=== PATIENT | male | born 1950 | race African-American/Black ===

== ENCOUNTER 2017-10-28 10:28 | Inpatient (IN) | payer BC, OTHER ==
[2017-10-28 13:05] VITALS: BMI 44.0
--- NOTE | 2017-10-28 13:26 | HP ---
CIWA Score - CIWA Score Nausea/Vomitin-Mild Nausea/No Vomiting Muscle Tremors: 3 Anxiety: 4-Mod. Anxious/Guarded Agitation: 0-Normal Activity Paroxysmal Sweats: 1-Minimal Palms Moist Orientation: 1-Uncertain about Date Tacttile Disturbances: 0-None Auditory Disturbances: 1-Very Mild Visual Disturbances: 0-None Headache: 0-None Present CIWA-Ar Total Score: 11 Admission ROS BHS - HPI Chief Complaint: I know I need help, I wake up each day and first off get a beer - I can't stop, the stroke made me want to get help. Allergies/Adverse Reactions: Allergies Allergy/AdvReac Type Severity Reaction Status Date / Time No Known Allergies Allergy Verified 10/28/17 13:44 History of Present Illness: 67 yo gentleman here for detox from alcohol. No seizures but does have black outs, had a stroke 10/19/17. Previously in detox, rehab but relapsed for several years (last here in outpatient rehab 2011). Patient is homeless. Although he has mild facial drop and expressive aphasia from recent stroke, patient states he has no trouble swallowing or eating. Exam Limitations: Clinical Condition - Ebola screening Have you traveled outside of the country in the last 21 days: No (N) Have you had contact with anyone from an Ebola affected area: No Have you been sick,other than usual withdrawal symptoms: No Do you have a fever: No - Review of Systems Constitutional: Night Sweats, Changes in sleep EENT: reports: Blurred Vision, Other (left sided facial droop) Respiratory: reports: No Symptoms reported Cardiac: reports: No Symptoms Reported GI: reports: Nausea, Indigestion : reports: Frequency, Urgency Musculoskeletal: reports: No Symptoms Reported Integumentary: reports: Dryness Neuro: reports: Pre-Existing Deficit (expressive aphasia, left sided facial droop) Endocrine: reports: No Symptoms Reported Hematology: reports: No Symptoms Reported Psychiatric: reports: Judgement Intact, Mood/Affect Appropiate, Anxious Other Systems: Reviewed and Negative Patient History - Patient Medical History Hx Anemia: No Hx Asthma: No Hx Chronic Obstructive Pulmonary Disease (COPD): No Hx Cancer: No Hx Cardiac Disorders: No Hx Congestive Heart Failure: No Hx Hypertension: No Hx Hypercholesterolemia: No Hx Pacemaker: No HX Cerebrovascular Accident: Yes (10/19/2017 - ischemic basal ganglion) Hx Seizures: No Hx Dementia: No Hx Diabetes: Yes (oral meds) Hx Gastrointestinal Disorders: No Hx Liver Disease: No Hx Genitourinary Disorders: No Hx Sexually Transmitted Disorders: No Hx Renal Disease (ESRD): No Hx Thyroid Disease: No Hx Human Immunodeficiency Virus (HIV): No Hx Hepatitis C: No Hx Depression: Yes (sometimes - never sees regular psych, no meds) Hx Suicide Attempt: No Hx Bipolar Disorder: No Hx Schizophrenia: No - Patient Surgical History Hx Orthopedic Surgery: Yes (left knee arthroscopy age 47) - PPD History Previous Implant?: Yes Documented Results: Negative w/o proof PPD to be Administered?: Yes - Reproductive History Patient is a Female of Child Bearing Age (11 -55 yrs old): No (male) - Smoking Cessation Smoking history: Never smoked Have you smoked in the past 12 months: No Initiated information on smoking cessation: No - Substance & Tx. History Hx Alcohol Use: Yes Hx Substance Use: Yes Substance Use Type: Alcohol, Cocaine Hx Substance Use Treatment: Yes (detox, in and outpatient rehab) - Substances Abused alcohol Route: Oral Frequency: Daily Amount used: 1/2 pint liquor; 2 cans 24 oz beer Age of first use: 9 Date of Last Use: 10/27/17 crack Route: Smoking Frequency: 1-3 times last 30 days Amount used: $100 Age of first use: 31 Date of Last Use: 10/25/17 Family Disease History - Family Disease History Family Disease History: Diabetes: Sister (one - - sepsis), Heart Disease: Mother (, htn), Other: Father (, old age), Mother, Brother (two - hx drugs, etoh), Sister, Son (two - healthy) Admission Physical Exam S - Vital Signs Vital Signs: Vital Signs - 24 hr 10/28/17 12:59 Temperature 97 F L Pulse Rate 79 Respiratory 20 Rate Blood Pressure 134/77 - Physical General Appearance: Yes: Nourished, Appropriately Dressed, Moderate Distress, Obese, Anxious HEENTM: Yes: Hearing grossly Normal, Normocephalic, Pharynx Normal, Other (left sided facial droop, mild expressive aphasia) Respiratory: Yes: Normal Breath Sounds, No Respiratory Distress Neck: Yes: No masses,lesions,Nodules Breast: Yes: Breast Exam Deferred Cardiology: Yes: Regular Rhythm, Regular Rate Abdominal: Yes: Flat, Protuberent Genitourinary: Yes: Frequency Back: Yes: Normal Inspection Musculoskeletal: Yes: full range of Motion, Gait Steady Extremities: Yes: Normal Inspection Neurological: Yes: Fully Oriented, Alert, Normal Mood/Affect, Normal Response, Facial Droop Integumentary: Yes: Normal Color, Warm Lymphatic: Yes: Within Normal Limits - Addiitonal Findings: bgm 175 - Diagnostic (1) Alcohol dependence with uncomplicated withdrawal Current Visit: Yes Status: Chronic (2) Cocaine abuse Current Visit: Yes Status: Chronic (3) Hypercholesteremia Current Visit: Yes Status: Chronic (4) Diabetes mellitus treated with oral medication Current Visit: Yes Status: Chronic (5) Obesity, Class III, BMI 40-49.9 (morbid obesity) Current Visit: Yes Status: Chronic (6) HTN (hypertension) Current Visit: Yes Status: Chronic Qualifiers: Hypertension type: essential hypertension Qualified Code(s): I10 - Essential (primary) hypertension (7) History of CVA with residual deficit Current Visit: Yes Status: Chronic (8) BPH (benign prostatic hyperplasia) Current Visit: Yes Status: Chronic Qualifiers: Lower urinary tract symptom presence: symptoms present Lower urinary tract symptom detail: urinary frequency Qualified Code(s): N40.1 - Benign prostatic hyperplasia with lower urinary tract symptoms; R35.0 - Frequency of micturition ; R35.0 - Frequency of micturition (9) Expressive aphasia Current Visit: Yes Status: Acute (10) Facial droop Current Visit: Yes Status: Chronic Comment: left side, due to CVA Cleared for Admission [facility] - Detox or Rehab [facility] Level of Care: Medically Managed Detox Regimen/Protocol: Librium [facility] Breath Alcohol Content Breath Alcohol Content: 0 Urine Drug Screen - Results Drug Screen Negative: No Urine Drug Screen Results: GISSELL-Cocaine, BZO-Benzodiazepines
[2017-10-28] MEDS ORDERED: MENTHOL/PHENOL 1 EACH UD MM PRN (13:53)
[2017-10-28] MEDS ORDERED: hydrOXYzine PAMOATE 25 MG CAPSULE (FP) PO PRN (13:53)
[2017-10-28] MEDS ORDERED: ACETAMINOPHEN 325 MG TABLET (FP) PO PRN (13:53)
[2017-10-28] MEDS ORDERED: LOPERAMIDE HCL 2 MG CAPSULE PO PRN (13:53)
[2017-10-28] MEDS ORDERED: guaiFENesin/D-METHORPHAN HB 10 ML UNIT-DOSE CUPS PO PRN (13:53)
[2017-10-28] MEDS ORDERED: MAGNESIUM HYDROX 2400MG/30ML ORAL SUSPENSION 30 ML CUP PO PRN (13:53)
[2017-10-28] MEDS ORDERED: chlordiazePOXIDE HCL 25 MG CAPSULE PO PRN (13:53)
[2017-10-28] MEDS ORDERED: P-EPHED 60MG/TRIPROLIDI 2.5MG TABLET PO PRN (13:53)
[2017-10-28] MEDS ORDERED: MAGNESIUM CITRATE 300 ML BOTTLE PO PRN (13:53)
[2017-10-28] MEDS ORDERED: MAG HYDROX/AL HYDROX/SIMETH 30 ML UNIT-DOSE CUP PO PRN (13:53)
[2017-10-28] MEDS ORDERED: chlordiazePOXIDE HCL 25 MG CAPSULE PO ONE (14:45)
[2017-10-28] MEDS: chlordiazePOXIDE HCL 25 MG CAPSULE PO SCH ×2 (17:48→23:36)
[2017-10-28] MEDS ORDERED: INSULIN (NOVOLOG) ASPART 100 UNITS/ML 10ML VIAL ONE (17:55)
[2017-10-28] MEDS: metFORMIN HCL 500 MG TABLET (FP) PO SCH (17:56)
[2017-10-28] MEDS: INSULIN SLIDING SCALE (NOVOLOG) 1 VIAL SQ SCH (18:01)
[2017-10-28] MEDS: LOSARTAN POTASSIUM 50 MG TABLET (FP) PO SCH (18:20)
[2017-10-28] MEDS: ASPIRIN 81 MG CHEWABLE TABLETS PO SCH (18:20)
[2017-10-28] MEDS: HYDROCHLOROTHIAZIDE 25 MG TABLET (FP) PO SCH (18:21)
[2017-10-28] MEDS: ATORVASTATIN CA 10 MG TABLET (FP) PO SCH (23:35)
[2017-10-28] MEDS: THIAMINE HCL 100 MG TABLET (FP) PO SCH (23:35)
[2017-10-29 00:55] LABS: URINE APPEARANCE CLEAR; URINE BILIRUBIN NEGATIVE (NEGATIVE); URINE BLOOD NEGATIVE (NEGATIVE); URINE COLOR YELLOW; URINE GLUCOSE (UA) 3+ (NEGATIVE); URINE KETONE NEGATIVE (NEGATIVE); URINE LEUK ESTERASE NEGATIVE (NEGATIVE); URINE NITRITE NEGATIVE (NEGATIVE); URINE PROTEIN NEGATIVE (NEGATIVE)
[2017-10-29] MEDS: chlordiazePOXIDE HCL 25 MG CAPSULE PO SCH ×4 (07:19→22:02)
[2017-10-29] MEDS ORDERED: INSULIN (NOVOLOG) ASPART 100 UNITS/ML 10ML VIAL ONE ×2 (07:27→17:28)
[2017-10-29] MEDS: INSULIN SLIDING SCALE (NOVOLOG) 1 VIAL SQ SCH ×2 (07:33→17:39)
[2017-10-29 10:12] LABS: HEMATOCRIT 39.2 % (35.4-49); HEMOGLOBIN 13.9 GM/dL (11.7-16.9); MCH 31.5 pg (25.7-33.7); MCHC 35.3 g/dl (32.0-35.9); MEAN CELL VOLUME 89.1 fl (80-96); MEAN PLT VOLUME 8.9 fl (7.5-11.1); PLATELET COUNT 131 K/MM3 (134-434); RBC 4.41 M/mm3 (4.00-5.60); RDW 12.5 % (11.9-15.9); WHITE BLOOD COUNT 3.5 K/mm3 (4.0-10.0)
[2017-10-29 10:17] LABS: CHLORIDE 101 mmol/L (98-107); POTASSIUM 3.3 mmol/L (3.5-5.1); SODIUM 139 mmol/L (136-145)
--- NOTE | 2017-10-29 10:17 | CONSULT ---
[facility] Psychiatric Consult - Data Date of interview: 10/29/17 Admission source: Self-referred Identifying data: Mr Zimmerman is a 67 years old single Black male, father of a 32 years old son, unemployed on SSI, homeless seeking detox treatment for alcohol and cocaine Substance Abuse History: Reports history of alcohol and cocaine use. Refer to addiction counselor's note for further information Medical History: Significant for diabetes mellitus, hypertension, BPH and history of recent CVA(residual facial dropping & expressive aphasia) and arthroscopic surgery left knee. Psychiatric History: Denies history of psychiatric treatment Physical/Sexual Abuse/Trauma History: Denies history of emotional, physical or sexual abuse as well as DV relationship. No service Additional Comment: Reports history of 2 previous midemeanor arrests on charges of possession of narcotic Mental Status Exam - Mental Status Exam Alert and Oriented to: Time, Place, Person Cognitive Function: Fair Patient Appearance: Disheveled Mood: Hopeful, Euthymic Patient Behavior: Cooperative Speech Pattern: Clear Voice Loudness: Normal Thought Process: Intact, Goal Oriented Thought Disorder: Not Present Hallucinations: Denies Suicidal Ideation: Denies Homicidal Ideation: Denies Insight/Judgement: Poor Sleep: Well Appetite: Good Muscle strength/Tone: Normal Gait/Station: Normal Psychiatric Findings - Problem List ([place] 1, 2,3) (1) Alcohol dependence with uncomplicated withdrawal Current Visit: Yes Status: Acute (2) Cocaine abuse Current Visit: Yes Status: Acute (3) History of CVA with residual deficit Current Visit: Yes Status: Chronic (4) Expressive aphasia Current Visit: Yes Status: Chronic (5) Facial droop Current Visit: Yes Status: Chronic Comment: left side, due to CVA (6) BPH (benign prostatic hyperplasia) Current Visit: Yes Status: Chronic Qualifiers: Lower urinary tract symptom presence: symptoms present Lower urinary tract symptom detail: urinary frequency Qualified Code(s): N40.1 - Benign prostatic hyperplasia with lower urinary tract symptoms; R35.0 - Frequency of micturition ; R35.0 - Frequency of micturition (7) HTN (hypertension) Current Visit: Yes Status: Chronic Qualifiers: Hypertension type: essential hypertension Qualified Code(s): I10 - Essential (primary) hypertension (8) Hypercholesteremia Current Visit: Yes Status: Chronic (9) Obesity, Class III, BMI 40-49.9 (morbid obesity) Current Visit: Yes Status: Chronic - Initial Treatment Plan Initial Treatment Plan: Monitor progress
[2017-10-29] MEDS: ASPIRIN 81 MG CHEWABLE TABLETS PO SCH (10:24)
[2017-10-29] MEDS: PRENATAL VITAMINS W/ FOLIC ACID TABLET (FP) PO SCH (10:24)
[2017-10-29] MEDS: TAMSULOSIN HCL 0.4 MG CAP.ER.24H (FP) PO SCH (10:25)
[2017-10-29] MEDS: HYDROCHLOROTHIAZIDE 25 MG TABLET (FP) PO SCH (10:25)
[2017-10-29] MEDS: metFORMIN HCL 500 MG TABLET (FP) PO SCH ×2 (10:26→17:38)
[2017-10-29 10:27] LABS: ALBUMIN 3.3 g/dl (3.4-5.0); ALK PHOS 52 U/L (45-117); ANION GAP 9 (8-16); BILIRUBIN,TOTAL 1.1 mg/dL (0.2-1.0); BLOOD UREA NITROGEN 18 mg/dL (7-18); CALCIUM 8.3 mg/dL (8.5-10.1); CO2 29 mmol/L (21-32); CREATININE 1.1 mg/dL (0.7-1.3); GLUCOSE,RANDOM 188 mg/dL (74-106); SGOT/AST 39 U/L (15-37); SGPT/ALT 67 U/L (12-78); TOT PROT 6.5 g/dl (6.4-8.2)
[2017-10-29] MEDS: LOSARTAN POTASSIUM 50 MG TABLET (FP) PO SCH (10:28)
--- NOTE | 2017-10-29 12:34 | PN ---
[facility] CIWA - CIWA Score Nausea/Vomitin-Mild Nausea/No Vomiting Muscle Tremors: 4-Moderate,w/Arms Extend Anxiety: 4-Mod. Anxious/Guarded Agitation: 4-Moderately Restless Paroxysmal Sweats: 1-Minimal Palms Moist Orientation: 0-Oriented Tacttile Disturbances: 0-None Auditory Disturbances: 0-None Visual Disturbances: 0-None Headache: 0-None Present CIWA-Ar Total Score: 14 BHS Progress Note (SOAP) Subjective: sweat tremor restlessness irritable sleeplessness Objective: 10/29/17 12:32 Vital Signs Temperature 97.7 F 10/29/17 10:00 Pulse Rate 73 10/29/17 10:00 Respiratory Rate 18 10/29/17 10:00 Blood Pressure 128/64 10/29/17 10:00 O2 Sat by Pulse Oximetry (%) Laboratory Last Values WBC 3.5 K/mm3 (4.0-10.0) L 10/29/17 07:20 RBC 4.41 M/mm3 (4.00-5.60) 10/29/17 07:20 Hgb 13.9 GM/dL (11.7-16.9) 10/29/17 07:20 Hct 39.2 % (35.4-49) 10/29/17 07:20 MCV 89.1 fl (80-96) 10/29/17 07:20 MCH 31.5 pg (25.7-33.7) 10/29/17 07:20 MCHC 35.3 g/dl (32.0-35.9) 10/29/17 07:20 RDW 12.5 % (11.9-15.9) 10/29/17 07:20 Plt Count 131 K/MM3 (134-434) L 10/29/17 07:20 MPV 8.9 fl (7.5-11.1) 10/29/17 07:20 Sodium 139 mmol/L (136-145) 10/29/17 07:20 Potassium 3.3 mmol/L (3.5-5.1) L 10/29/17 07:20 Chloride 101 mmol/L (98-107) 10/29/17 07:20 Carbon Dioxide 29 mmol/L (21-32) 10/29/17 07:20 Anion Gap 9 (8-16) 10/29/17 07:20 BUN 18 mg/dL (7-18) 10/29/17 07:20 Creatinine 1.1 mg/dL (0.7-1.3) 10/29/17 07:20 Creat Clearance w eGFR > 60 (>60) 10/29/17 07:20 POC Glucometer 196 UNITS (80-120) 10/29/17 07:15 Random Glucose 188 mg/dL (74-106) H 10/29/17 07:20 Calcium 8.3 mg/dL (8.5-10.1) L 10/29/17 07:20 Total Bilirubin 1.1 mg/dL (0.2-1.0) H 10/29/17 07:20 AST 39 U/L (15-37) H 10/29/17 07:20 ALT 67 U/L (12-78) 10/29/17 07:20 Alkaline Phosphatase 52 U/L (45-117) 10/29/17 07:20 Total Protein 6.5 g/dl (6.4-8.2) 10/29/17 07:20 Albumin 3.3 g/dl (3.4-5.0) L 10/29/17 07:20 Urine Color Yellow 10/29/17 00:01 Urine Appearance Clear 10/29/17 00:01 Urine pH 6.0 (5.0-8.0) 10/29/17 00:01 Ur Specific [place] 1.040 (1.001-1.035) H 10/29/17 00:01 Urine Protein Negative (NEGATIVE) 10/29/17 00:01 Urine Glucose (UA) 3+ (NEGATIVE) H 10/29/17 00:01 Urine Ketones Negative (NEGATIVE) 10/29/17 00:01 Urine Blood Negative (NEGATIVE) 10/29/17 00:01 Urine Nitrite Negative (NEGATIVE) 10/29/17 00:01 Urine Bilirubin Negative (NEGATIVE) 10/29/17 00:01 Urine Urobilinogen 2.0 mg/dL (0.2-1.0) 10/29/17 00:01 Ur Leukocyte Esterase Negative (NEGATIVE) 10/29/17 00:01 RPR Titer Nonreactive (NONREACTIVE) 10/29/17 07:20 lab noted potassium supplement Assessment: 10/29/17 12:33 withdrawal sx hypokalemia Plan: continue detox potassium 20 meq bid po repeat serum K+ 10/31/17
[2017-10-29] MEDS: POTASSIUM CHLORIDE ORAL LIQUID 20 MEQ/15 ML PO SCH ×2 (13:30→22:02)
--- NOTE | 2017-10-29 20:36 | EKG ---
Test Reason : Blood Pressure : / mmHG Vent. Rate : 069 BPM Atrial Rate : 069 BPM P-R Int : 198 ms QRS Dur : 128 ms QT Int : 414 ms P-R-T Axes : 054 -61 030 degrees QTc Int : 443 ms NORMAL SINUS RHYTHM LEFT AXIS DEVIATION NON-SPECIFIC INTRA-VENTRICULAR CONDUCTION BLOCK INFERIOR INFARCT , AGE UNDETERMINED ANTEROLATERAL INFARCT , AGE UNDETERMINED ABNORMAL ECG NO PREVIOUS ECGS AVAILABLE Confirmed by FARHANA ENGEL, AMBER ([id number]) on 10/29/2017 8:35:53 PM Referred By: Confirmed By:AMBER DELCID MD
[2017-10-29] MEDS: ATORVASTATIN CA 10 MG TABLET (FP) PO SCH (22:02)
[2017-10-29] MEDS: THIAMINE HCL 100 MG TABLET (FP) PO SCH (22:02)
[2017-10-30] MEDS: chlordiazePOXIDE HCL 25 MG CAPSULE PO SCH ×2 (05:12→10:12)
[2017-10-30] MEDS: metFORMIN HCL 500 MG TABLET (FP) PO SCH ×2 (06:14→17:21)
[2017-10-30] MEDS ORDERED: INSULIN (NOVOLOG) ASPART 100 UNITS/ML 10ML VIAL ONE ×2 (06:17→16:55)
[2017-10-30] MEDS: INSULIN SLIDING SCALE (NOVOLOG) 1 VIAL SQ SCH ×2 (07:52→17:21)
[2017-10-30] MEDS: TAMSULOSIN HCL 0.4 MG CAP.ER.24H (FP) PO SCH (10:12)
[2017-10-30] MEDS: POTASSIUM CHLORIDE ORAL LIQUID 20 MEQ/15 ML PO SCH ×2 (10:12→22:19)
[2017-10-30] MEDS: PRENATAL VITAMINS W/ FOLIC ACID TABLET (FP) PO SCH (10:12)
[2017-10-30] MEDS: HYDROCHLOROTHIAZIDE 25 MG TABLET (FP) PO SCH (10:12)
[2017-10-30] MEDS: ASPIRIN 81 MG CHEWABLE TABLETS PO SCH (10:12)
[2017-10-30] MEDS ORDERED: POTASSIUM CHLORIDE TABS 20 MEQ TABLET.ER (FP) PO ONE (10:38)
--- NOTE | 2017-10-30 10:38 | PN ---
S CIWA - CIWA Score Nausea/Vomitin Muscle Tremors: 3 Anxiety: 3 Agitation: 2 Paroxysmal Sweats: 1-Minimal Palms Moist Orientation: 0-Oriented Tacttile Disturbances: 1-Very Mild Itch/Numbness Auditory Disturbances: 1-Very Mild Visual Disturbances: 0-None Headache: 2-Mild CIWA-Ar Total Score: 16 BHS Progress Note (SOAP) Subjective: ALERT,IRRITABLE,ANXIOUS,INTERRUPTED SLEEP,TREMOR Objective: 10/30/17 10:34 Vital Signs Temperature 97.3 F L 10/30/17 10:27 Pulse Rate 78 10/30/17 10:27 Respiratory Rate 18 10/30/17 10:27 Blood Pressure 123/57 10/30/17 10:27 O2 Sat by Pulse Oximetry (%) NO CHEST PAIN,NO SOB,NO DIZZINESS 10/30/17 10:36 Laboratory Last Values WBC 3.5 K/mm3 (4.0-10.0) L 10/29/17 07:20 RBC 4.41 M/mm3 (4.00-5.60) 10/29/17 07:20 Hgb 13.9 GM/dL (11.7-16.9) 10/29/17 07:20 Hct 39.2 % (35.4-49) 10/29/17 07:20 MCV 89.1 fl (80-96) 10/29/17 07:20 MCH 31.5 pg (25.7-33.7) 10/29/17 07:20 MCHC 35.3 g/dl (32.0-35.9) 10/29/17 07:20 RDW 12.5 % (11.9-15.9) 10/29/17 07:20 Plt Count 131 K/MM3 (134-434) L 10/29/17 07:20 MPV 8.9 fl (7.5-11.1) 10/29/17 07:20 Sodium 139 mmol/L (136-145) 10/29/17 07:20 Potassium 3.3 mmol/L (3.5-5.1) L 10/29/17 07:20 Chloride 101 mmol/L (98-107) 10/29/17 07:20 Carbon Dioxide 29 mmol/L (21-32) 10/29/17 07:20 Anion Gap 9 (8-16) 10/29/17 07:20 BUN 18 mg/dL (7-18) 10/29/17 07:20 Creatinine 1.1 mg/dL (0.7-1.3) 10/29/17 07:20 Creat Clearance w eGFR > 60 (>60) 10/29/17 07:20 POC Glucometer 192 UNITS (80-120) 10/30/17 05:12 Random Glucose 188 mg/dL (74-106) H 10/29/17 07:20 Calcium 8.3 mg/dL (8.5-10.1) L 10/29/17 07:20 Total Bilirubin 1.1 mg/dL (0.2-1.0) H 10/29/17 07:20 AST 39 U/L (15-37) H 10/29/17 07:20 ALT 67 U/L (12-78) 10/29/17 07:20 Alkaline Phosphatase 52 U/L (45-117) 10/29/17 07:20 Total Protein 6.5 g/dl (6.4-8.2) 10/29/17 07:20 Albumin 3.3 g/dl (3.4-5.0) L 10/29/17 07:20 Urine Color Yellow 10/29/17 00:01 Urine Appearance Clear 10/29/17 00:01 Urine pH 6.0 (5.0-8.0) 10/29/17 00:01 Ur Specific [place] 1.040 (1.001-1.035) H 10/29/17 00:01 Urine Protein Negative (NEGATIVE) 10/29/17 00:01 Urine Glucose (UA) 3+ (NEGATIVE) H 10/29/17 00:01 Urine Ketones Negative (NEGATIVE) 10/29/17 00:01 Urine Blood Negative (NEGATIVE) 10/29/17 00:01 Urine Nitrite Negative (NEGATIVE) 10/29/17 00:01 Urine Bilirubin Negative (NEGATIVE) 10/29/17 00:01 Urine Urobilinogen 2.0 mg/dL (0.2-1.0) 10/29/17 00:01 Ur Leukocyte Esterase Negative (NEGATIVE) 10/29/17 00:01 RPR Titer Nonreactive (NONREACTIVE) 10/29/17 07:20 HYPOKALEMIA Assessment: 10/30/17 10:37 WITHDRAWAL SYMPTOM Plan: CONTINUE DETOX,K DUR 20 MEQ PO DAILY FOR 3 DAYS K IS 3.3,REPEAT BMP IN AM
--- NOTE | 2017-10-30 10:40 | PN ---
BHS Progress Note Note: PATIENT HAS BEEN ON KCL 20 MEQ PO BID ,WILL REPEAT BMP IN AM
[2017-10-30] MEDS: LOSARTAN POTASSIUM 50 MG TABLET (FP) PO SCH (11:04)
[2017-10-30] MEDS: chlordiazePOXIDE 5 MG CAPSULE PO SCH ×2 (17:21→22:19)
[2017-10-30] MEDS: ATORVASTATIN CA 10 MG TABLET (FP) PO SCH (22:19)
[2017-10-30] MEDS: THIAMINE HCL 100 MG TABLET (FP) PO SCH (22:19)
[2017-10-31] MEDS: chlordiazePOXIDE 5 MG CAPSULE PO SCH ×2 (05:31→10:23)
[2017-10-31] MEDS ORDERED: INSULIN (NOVOLOG) ASPART 100 UNITS/ML 10ML VIAL ONE (07:40)
[2017-10-31] MEDS: metFORMIN HCL 500 MG TABLET (FP) PO SCH ×2 (07:43→18:01)
[2017-10-31] MEDS: INSULIN SLIDING SCALE (NOVOLOG) 1 VIAL SQ SCH ×2 (07:43→18:05)
--- NOTE | 2017-10-31 09:53 | PN ---
S Progress Note (SOAP) Subjective: ALERT,IRRITABLE,ANXIOUS,INTERRUPTED SLEEP, Objective: 10/31/17 09:52 Vital Signs Temperature 97 F L 10/31/17 06:06 Pulse Rate 64 10/31/17 06:06 Respiratory Rate 20 10/31/17 06:06 Blood Pressure 138/69 10/31/17 06:06 O2 Sat by Pulse Oximetry (%) BGM 211 REPEAT BMP PENDING Assessment: WITHDRAWAL SYMPTOM 10/31/17 09:52 Plan: CONTINUE DETOX
[2017-10-31] MEDS: ASPIRIN 81 MG CHEWABLE TABLETS PO SCH (10:23)
[2017-10-31] MEDS: POTASSIUM CHLORIDE ORAL LIQUID 20 MEQ/15 ML PO SCH ×2 (10:23→22:39)
[2017-10-31] MEDS: HYDROCHLOROTHIAZIDE 25 MG TABLET (FP) PO SCH (10:23)
[2017-10-31] MEDS: PRENATAL VITAMINS W/ FOLIC ACID TABLET (FP) PO SCH (10:23)
[2017-10-31] MEDS: LOSARTAN POTASSIUM 50 MG TABLET (FP) PO SCH (10:24)
[2017-10-31] MEDS: TAMSULOSIN HCL 0.4 MG CAP.ER.24H (FP) PO SCH (10:24)
[2017-10-31 10:34] LABS: ANION GAP 12 (8-16); BLOOD UREA NITROGEN 15 mg/dL (7-18); CALCIUM 8.6 mg/dL (8.5-10.1); CHLORIDE 101 mmol/L (98-107); CO2 27 mmol/L (21-32); CREATININE 0.9 mg/dL (0.7-1.3); GLUCOSE,RANDOM 213 mg/dL (74-106); POTASSIUM 3.8 mmol/L (3.5-5.1); SODIUM 140 mmol/L (136-145)
[2017-10-31] MEDS: chlordiazePOXIDE HCL 10 MG CAPSULE PO SCH ×2 (18:01→22:05)
[2017-10-31] MEDS: ATORVASTATIN CA 10 MG TABLET (FP) PO SCH (22:05)
[2017-10-31] MEDS: THIAMINE HCL 100 MG TABLET (FP) PO SCH (22:05)
[2017-11-01] MEDS: chlordiazePOXIDE HCL 10 MG CAPSULE PO SCH ×3 (05:32→10:33)
[2017-11-01] MEDS ORDERED: INSULIN (NOVOLOG) ASPART 100 UNITS/ML 10ML VIAL ONE (06:27)
[2017-11-01] MEDS: metFORMIN HCL 500 MG TABLET (FP) PO SCH (06:52)
[2017-11-01] MEDS: INSULIN SLIDING SCALE (NOVOLOG) 1 VIAL SQ SCH (06:52)
--- NOTE | 2017-11-01 09:04 | PN ---
S Progress Note (SOAP) Subjective: ALERT,NO COMPLAINT Objective: 11/01/17 09:00 Vital Signs Temperature 97.1 F L 11/01/17 06:05 Pulse Rate 65 11/01/17 06:05 Respiratory Rate 19 11/01/17 06:05 Blood Pressure 150/55 11/01/17 06:05 O2 Sat by Pulse Oximetry (%) Assessment: 11/01/17 09:01 DETOX COMPLETE,NO WITHDRAWAL SYMPTOM Plan: TRANSFER TO [facility] FOR CONTINUATION OF LEVEL OF CARE
--- NOTE | 2017-11-01 09:09 | DS ---
[facility] Detox Discharge Summary Admission Date: 10/28/17 Discharge Date: 11/01/17 - History Present History: Alcohol Dependence, Cocaine Dependence Additional Comments: TRANSFER TO [facility] FOR CONTINUATION OF LEVEL OF CARE Pertinent Past History: HYPERCHOLESTEROLEMIA TYPE 2 DM HYPERTENSION HISTORY OF CVA RITH RESIDUAL DEFICIT BPH FACIAL PALSY OBESITY HYPOKALEMIA - Physical Exam Results Vital Signs: Vital Signs Temperature 97.1 F L 11/01/17 06:05 Pulse Rate 65 11/01/17 06:05 Respiratory Rate 19 11/01/17 06:05 Blood Pressure 150/55 11/01/17 06:05 O2 Sat by Pulse Oximetry (%) Pertinent Admission Physical Exam Findings: WITHDRAWAL SIGNS AND SYMPTOM - Treatment Hospital Course: Detox Protocol Followed, Detoxed Safely, Responded well, Discharged Condition Good, Rehab Referral Accepted Patient has Accepted a Rehab Referral to: [facility] - Medication Discharge Medications: Ambulatory Orders Aspirin [ASA -] 81 mg PO DAILY #30 tab.chew 10/31/17 Atorvastatin Ca [Lipitor] 10 mg PO HS #30 tablet 10/31/17 Empagliflozin [Jardiance] 10 mg PO DAILY #30 tablet 10/31/17 Losartan/Hydrochlorothiazide [Losartan-Hctz 100-25 mg Tab] 1 each PO DAILY #30 tablet 10/31/17 Tamsulosin HCl [Flomax -] 0.4 mg PO DAILY #30 cap.er.24h 10/31/17 metFORMIN HCL [Glucophage -] 1,000 mg PO BID #120 tablet 10/31/17 - Diagnosis (1) Alcohol dependence with uncomplicated withdrawal Current Visit: Yes Status: Acute (2) Cocaine abuse Current Visit: Yes Status: Acute (3) BPH (benign prostatic hyperplasia) Current Visit: Yes Status: Chronic Qualifiers: Lower urinary tract symptom presence: symptoms present Lower urinary tract symptom detail: urinary frequency Qualified Code(s): N40.1 - Benign prostatic hyperplasia with lower urinary tract symptoms; R35.0 - Frequency of micturition ; R35.0 - Frequency of micturition (4) Diabetes mellitus treated with oral medication Current Visit: Yes Status: Chronic (5) Facial droop Current Visit: Yes Status: Chronic (6) HTN (hypertension) Current Visit: Yes Status: Chronic Qualifiers: Hypertension type: essential hypertension Qualified Code(s): I10 - Essential (primary) hypertension (7) History of CVA with residual deficit Current Visit: Yes Status: Chronic (8) Hypercholesteremia Current Visit: Yes Status: Chronic (9) Obesity, Class III, BMI 40-49.9 (morbid obesity) Current Visit: Yes Status: Chronic (10) Hypokalemia Current Visit: Yes Status: Acute
[2017-11-01] MEDS: TAMSULOSIN HCL 0.4 MG CAP.ER.24H (FP) PO SCH (10:29)
[2017-11-01] MEDS: PRENATAL VITAMINS W/ FOLIC ACID TABLET (FP) PO SCH (10:29)
[2017-11-01] MEDS: ASPIRIN 81 MG CHEWABLE TABLETS PO SCH (10:29)
[2017-11-01] MEDS: LOSARTAN POTASSIUM 50 MG TABLET (FP) PO SCH (10:29)
[2017-11-01] MEDS: HYDROCHLOROTHIAZIDE 25 MG TABLET (FP) PO SCH (10:29)
[2017-11-01] MEDS: POTASSIUM CHLORIDE ORAL LIQUID 20 MEQ/15 ML PO SCH (10:30)
[2017-11-01 13:14] VITALS: BP 130/72; PULSE 80; TEMP 97.1
== END 2017-11-01 14:35 | disposition other institution (70) | DRG 897 ==
LOC: YASAS 10:28 → Y6N 14:36
PROVIDERS: ADMIT Internal Medicine; ATTEND Internal Medicine
PROC: HZ2ZZZZ Detoxification Services for Substance Abuse Treatment (ICD-10-PCS; principal; 2017-10-28)
DX: F10.230 Alcohol dependence with withdrawal, uncomplicated (principal); Z68.41 Body mass index [BMI] 40.0-44.9, adult; F14.10 Cocaine abuse, uncomplicated; I10 Essential (primary) hypertension; N40.1 Benign prostatic hyperplasia with lower urinary tract symptoms; R35.0 Frequency of micturition; E11.9 Type 2 diabetes mellitus without complications; I69.392 Facial weakness following cerebral infarction; I69.320 Aphasia following cerebral infarction; E78.00 Pure hypercholesterolemia, unspecified; E87.6 Hypokalemia; E66.8 Other obesity; Z79.4 Long term (current) use of insulin
CPT/HCPCS: 36415; 80048; 80053; 81003; 82962; 85027; 86593; 93005; 93010

== ENCOUNTER 2017-11-01 14:48 | Inpatient (IN) | payer BC, OTHER ==
[2017-11-01] MEDS ORDERED: IBUPROFEN 400 MG TABLET (FP) PO PRN (14:57)
[2017-11-01] MEDS ORDERED: MAG HYDROX/AL HYDROX/SIMETH 30 ML UNIT-DOSE CUP PO PRN (14:57)
[2017-11-01] MEDS ORDERED: LOPERAMIDE HCL 2 MG CAPSULE PO PRN (14:57)
[2017-11-01] MEDS ORDERED: P-EPHED 60MG/TRIPROLIDI 2.5MG TABLET PO PRN (14:57)
[2017-11-01] MEDS ORDERED: MAGNESIUM CITRATE 300 ML BOTTLE PO PRN (14:57)
[2017-11-01] MEDS ORDERED: guaiFENesin/D-METHORPHAN HB 10 ML UNIT-DOSE CUPS PO PRN (14:57)
[2017-11-01] MEDS ORDERED: ACETAMINOPHEN 325 MG TABLET (FP) PO PRN (14:57)
[2017-11-01] MEDS ORDERED: MENTHOL/PHENOL 1 EACH UD MM PRN (14:57)
[2017-11-01] MEDS ORDERED: MAGNESIUM HYDROX 2400MG/30ML ORAL SUSPENSION 30 ML CUP PO PRN (14:57)
--- NOTE | 2017-11-01 15:08 | HP ---
[facility] Rehab Assess/Revision - Admission History Admitted to Rehab from: [facility] [place] Date of Admission to Rehab: 11/01/17 - Findings Detox History & Physical reviewed: Yes Concur with findings: Yes Comments/Additional Findings: FOR REHAB PROTOCOL Inpatient Rehab Admission - Initial Determination Are CD services needed?: Yes Free of communicable disease: Yes Not in need of hospitalization: Yes - Rehab Admission Criteria Previous failed treatment: Yes Poor recovery environment: Yes Comorbidities: Yes Lacks judgement: No Patient is meeting Inpatient Rehab admission criteria:: Yes
[2017-11-01 15:36] VITALS: BMI 44.0
[2017-11-01] MEDS: metFORMIN HCL 500 MG TABLET (FP) PO SCH (17:02)
[2017-11-01] MEDS: ATORVASTATIN CA 10 MG TABLET (FP) PO SCH (21:34)
[2017-11-01] MEDS: THIAMINE HCL 100 MG TABLET (FP) PO SCH (21:34)
--- NOTE | 2017-11-02 06:17 | HP ---
Psychiatrist Admission - Data Date of interview: 11/02/17 Admission source: 6N Identifying data: This is the first [facility] admission for this 67 years old single Black male, father of a 32 years old son , unemployed on SSI, homeless Medical History: Significant for diabetes mellitus, hypertension, BPH and history of recent CVA(residual facial dropping & expressive aphasia) and arthroscopic surgery for torn meniscus left knee 30 years ago. Psychiatric History: Denies history of psychiatric treatment Physical/Sexual Abuse/Trauma History: Denies history of emotional, physical or sexual abuse as well as DV relationship. No service Additional Comment: Reports history of 2 previous midemeanor arrests on charges of possession of narcotic Vital Signs: Vital Signs - 24 hr 11/02/17 11/02/17 00:30 03:30 Respiratory 18 18 Rate Allergies/Adverse Reactions: Allergies Allergy/AdvReac Type Severity Reaction Status Date / Time No Known Allergies Allergy Verified 11/01/17 14:49 Date of last physical exam: 10/28/17 Concur with the findings of this exam: Yes - Substance Abuse/Tx History Hx Alcohol Use: Yes Hx Substance Use: Yes Substance Use Type: Alcohol (Started drinking alcohol at age 9, consumes half a pint & 2x 24oz of beer daily. Last drank on 10/27/17), Cocaine (Started smkoing crack cocaine at age 31, consumes $300 worth 1-3 times in the last 30 days. Last smoked on 10/25/17) Hx Substance Use Treatment: Yes (5-6 previous inpt rehab & one inpt rehab( [facility])) Mental Status Exam - Mental Status Exam Alert and Oriented to: Time, Place, Person Cognitive Function: Fair Patient Appearance: Disheveled Mood: Depressed Affect: Appropriate Patient Behavior: Cooperative Speech Pattern: Clear Voice Loudness: Normal Thought Process: Intact, Goal Oriented Thought Disorder: Not Present Hallucinations: Denies Suicidal Ideation: Denies Homicidal Ideation: Denies Insight/Judgement: Fair Sleep: Poorly Appetite: Fair Muscle strength/Tone: Normal Gait/Station: Normal Psychiatric Findings - Problem List ([place] 1, 2,3) (1) Alcohol dependence Current Visit: Yes Status: Acute (2) Cocaine abuse Current Visit: No Status: Acute (3) Substance induced mood disorder Current Visit: Yes Status: Acute (4) Substance-induced sleep disorder Current Visit: Yes Status: Acute (5) BPH (benign prostatic hyperplasia) Current Visit: No Status: Chronic Qualifiers: Lower urinary tract symptom presence: symptoms present Lower urinary tract symptom detail: urinary frequency Qualified Code(s): N40.1 - Benign prostatic hyperplasia with lower urinary tract symptoms; R35.0 - Frequency of micturition ; R35.0 - Frequency of micturition (6) Diabetes mellitus treated with oral medication Current Visit: No Status: Chronic (7) History of CVA with residual deficit Current Visit: No Status: Chronic (8) Expressive aphasia Current Visit: No Status: Chronic (9) Facial droop Current Visit: No Status: Chronic Comment: left side, due to CVA (10) HTN (hypertension) Current Visit: No Status: Chronic Qualifiers: Hypertension type: essential hypertension Qualified Code(s): I10 - Essential (primary) hypertension (11) Hypercholesteremia Current Visit: No Status: Chronic (12) Obesity, Class III, BMI 40-49.9 (morbid obesity) Current Visit: No Status: Chronic - Initial Treatment Plan Initial Treatment Plan: 1) Start Belsomra 10 mg po HS prn for insomnia. 2) Monitor progress
[2017-11-02] MEDS: metFORMIN HCL 500 MG TABLET (FP) PO SCH ×2 (06:18→17:22)
[2017-11-02] MEDS: TAMSULOSIN HCL 0.4 MG CAP.ER.24H (FP) PO SCH (07:49)
[2017-11-02] MEDS: HYDROCHLOROTHIAZIDE 25 MG TABLET (FP) PO SCH (10:13)
[2017-11-02] MEDS: ASPIRIN 81 MG CHEWABLE TABLETS PO SCH (10:13)
[2017-11-02] MEDS: LOSARTAN POTASSIUM 50 MG TABLET (FP) PO SCH (10:13)
[2017-11-02] MEDS: PRENATAL VITAMINS W/ FOLIC ACID TABLET (FP) PO SCH (10:14)
[2017-11-02 10:28] LABS: CHLORIDE 102 mmol/L (98-107); POTASSIUM 3.8 mmol/L (3.5-5.1); SODIUM 139 mmol/L (136-145)
[2017-11-02 10:41] LABS: ANION GAP 12 (8-16); BLOOD UREA NITROGEN 12 mg/dL (7-18); CALCIUM 8.7 mg/dL (8.5-10.1); CO2 25 mmol/L (21-32); GLUCOSE,RANDOM 168 mg/dL (74-106)
[2017-11-02] MEDS: ATORVASTATIN CA 10 MG TABLET (FP) PO SCH (21:50)
[2017-11-02] MEDS: THIAMINE HCL 100 MG TABLET (FP) PO SCH (21:50)
[2017-11-02] MEDS ORDERED: SUVOREXANT 10 MG TABLET PO PRN (22:00)
[2017-11-03] MEDS: metFORMIN HCL 500 MG TABLET (FP) PO SCH ×2 (07:28→16:50)
[2017-11-03] MEDS: TAMSULOSIN HCL 0.4 MG CAP.ER.24H (FP) PO SCH (08:51)
[2017-11-03] MEDS: PRENATAL VITAMINS W/ FOLIC ACID TABLET (FP) PO SCH (09:51)
[2017-11-03] MEDS: ASPIRIN 81 MG CHEWABLE TABLETS PO SCH (09:51)
[2017-11-03] MEDS: LOSARTAN POTASSIUM 50 MG TABLET (FP) PO SCH (09:52)
[2017-11-03] MEDS: HYDROCHLOROTHIAZIDE 25 MG TABLET (FP) PO SCH (09:52)
[2017-11-03] MEDS: SUVOREXANT 10 MG TABLET PO PRN (21:17)
[2017-11-03] MEDS: ATORVASTATIN CA 10 MG TABLET (FP) PO SCH (21:17)
[2017-11-03] MEDS: THIAMINE HCL 100 MG TABLET (FP) PO SCH (21:17)
[2017-11-04] MEDS: metFORMIN HCL 500 MG TABLET (FP) PO SCH ×2 (07:51→16:49)
[2017-11-04] MEDS: PRENATAL VITAMINS W/ FOLIC ACID TABLET (FP) PO SCH (09:38)
[2017-11-04] MEDS: TAMSULOSIN HCL 0.4 MG CAP.ER.24H (FP) PO SCH (09:38)
[2017-11-04] MEDS: HYDROCHLOROTHIAZIDE 25 MG TABLET (FP) PO SCH (09:38)
[2017-11-04] MEDS: ASPIRIN 81 MG CHEWABLE TABLETS PO SCH (09:38)
[2017-11-04] MEDS: LOSARTAN POTASSIUM 50 MG TABLET (FP) PO SCH (09:38)
[2017-11-04] MEDS: THIAMINE HCL 100 MG TABLET (FP) PO SCH (21:12)
[2017-11-04] MEDS: ATORVASTATIN CA 10 MG TABLET (FP) PO SCH (21:12)
[2017-11-04] MEDS: SUVOREXANT 10 MG TABLET PO PRN (21:12)
[2017-11-05] MEDS: metFORMIN HCL 500 MG TABLET (FP) PO SCH ×2 (07:10→16:44)
[2017-11-05] MEDS: TAMSULOSIN HCL 0.4 MG CAP.ER.24H (FP) PO SCH (08:51)
[2017-11-05] MEDS: LOSARTAN POTASSIUM 50 MG TABLET (FP) PO SCH (09:51)
[2017-11-05] MEDS: ASPIRIN 81 MG CHEWABLE TABLETS PO SCH (09:52)
[2017-11-05] MEDS: HYDROCHLOROTHIAZIDE 25 MG TABLET (FP) PO SCH (09:52)
[2017-11-05] MEDS: PRENATAL VITAMINS W/ FOLIC ACID TABLET (FP) PO SCH (09:52)
[2017-11-05] MEDS: THIAMINE HCL 100 MG TABLET (FP) PO SCH (21:23)
[2017-11-05] MEDS: SUVOREXANT 10 MG TABLET PO PRN (21:23)
[2017-11-05] MEDS: ATORVASTATIN CA 10 MG TABLET (FP) PO SCH (21:23)
[2017-11-06] MEDS: metFORMIN HCL 500 MG TABLET (FP) PO SCH ×2 (06:17→16:43)
[2017-11-06] MEDS: TAMSULOSIN HCL 0.4 MG CAP.ER.24H (FP) PO SCH (07:49)
[2017-11-06] MEDS: PRENATAL VITAMINS W/ FOLIC ACID TABLET (FP) PO SCH (09:47)
[2017-11-06] MEDS: HYDROCHLOROTHIAZIDE 25 MG TABLET (FP) PO SCH (09:47)
[2017-11-06] MEDS: ASPIRIN 81 MG CHEWABLE TABLETS PO SCH (09:48)
[2017-11-06] MEDS: LOSARTAN POTASSIUM 50 MG TABLET (FP) PO SCH (09:48)
[2017-11-06] MEDS: ATORVASTATIN CA 10 MG TABLET (FP) PO SCH (21:21)
[2017-11-06] MEDS: SUVOREXANT 10 MG TABLET PO PRN (21:21)
[2017-11-06] MEDS: THIAMINE HCL 100 MG TABLET (FP) PO SCH (21:21)
[2017-11-07] MEDS: metFORMIN HCL 500 MG TABLET (FP) PO SCH ×2 (07:21→16:55)
[2017-11-07] MEDS: TAMSULOSIN HCL 0.4 MG CAP.ER.24H (FP) PO SCH (08:57)
[2017-11-07] MEDS: ASPIRIN 81 MG CHEWABLE TABLETS PO SCH (09:57)
[2017-11-07] MEDS: HYDROCHLOROTHIAZIDE 25 MG TABLET (FP) PO SCH (09:57)
[2017-11-07] MEDS: PRENATAL VITAMINS W/ FOLIC ACID TABLET (FP) PO SCH (09:57)
[2017-11-07] MEDS ORDERED: PT OWN MED DRAWER 7, Y5N ONE (09:58)
[2017-11-07] MEDS: LOSARTAN POTASSIUM 50 MG TABLET (FP) PO SCH (12:41)
--- NOTE | 2017-11-07 15:04 | PN ---
[facility] Progress Note Note: Patient reported concerns recent dx of stroke. Vital Signs Temperature 97.7 F 11/07/17 06:49 Pulse Rate 75 11/07/17 09:15 Respiratory Rate 18 11/07/17 06:49 Blood Pressure 139/80 11/07/17 09:15 O2 Sat by Pulse Oximetry (%) Laboratory Last Values Sodium 139 mmol/L (136-145) 11/02/17 08:00 Potassium 3.8 mmol/L (3.5-5.1) 11/02/17 08:00 Chloride 102 mmol/L (98-107) 11/02/17 08:00 Carbon Dioxide 25 mmol/L (21-32) 11/02/17 08:00 Anion Gap 12 (8-16) 11/02/17 08:00 BUN 12 mg/dL (7-18) 11/02/17 08:00 Creatinine 1.0 mg/dL (0.7-1.3) 11/02/17 08:00 POC Glucometer 229 UNITS (80-120) 11/04/17 06:21 Random Glucose 168 mg/dL (74-106) H D 11/02/17 08:00 Calcium 8.7 mg/dL (8.5-10.1) 11/02/17 08:00 Patient AOx3, self directing in no apparent distress, ambulating in the units, gets mild shortness breath when walking and needs to take intermittent rest. Patient was educated on disease process, the importance to followup with medical providers regarding his DM, HTN, and CVA, and importance to remain abstinent from substance use. Patient to follow up with PCP, medical biller coder and referral to PT and ST. Patient verbalized understanding.
[2017-11-07] MEDS: ATORVASTATIN CA 10 MG TABLET (FP) PO SCH (21:26)
[2017-11-07] MEDS: THIAMINE HCL 100 MG TABLET (FP) PO SCH (21:26)
[2017-11-07] MEDS: SUVOREXANT 10 MG TABLET PO PRN (21:26)
[2017-11-08] MEDS: metFORMIN HCL 500 MG TABLET (FP) PO SCH ×2 (07:02→16:48)
[2017-11-08] MEDS: TAMSULOSIN HCL 0.4 MG CAP.ER.24H (FP) PO SCH (09:54)
[2017-11-08] MEDS: PRENATAL VITAMINS W/ FOLIC ACID TABLET (FP) PO SCH (09:54)
[2017-11-08] MEDS: LOSARTAN POTASSIUM 50 MG TABLET (FP) PO SCH (09:54)
[2017-11-08] MEDS: ASPIRIN 81 MG CHEWABLE TABLETS PO SCH (09:54)
[2017-11-08] MEDS: HYDROCHLOROTHIAZIDE 25 MG TABLET (FP) PO SCH (09:55)
[2017-11-08] MEDS: ATORVASTATIN CA 10 MG TABLET (FP) PO SCH (21:21)
[2017-11-08] MEDS: SUVOREXANT 10 MG TABLET PO PRN (21:21)
[2017-11-08] MEDS: THIAMINE HCL 100 MG TABLET (FP) PO SCH (21:21)
[2017-11-09] MEDS: metFORMIN HCL 500 MG TABLET (FP) PO SCH ×2 (07:17→17:38)
[2017-11-09] MEDS: LOSARTAN POTASSIUM 50 MG TABLET (FP) PO SCH (09:48)
[2017-11-09] MEDS: ASPIRIN 81 MG CHEWABLE TABLETS PO SCH (09:48)
[2017-11-09] MEDS: TAMSULOSIN HCL 0.4 MG CAP.ER.24H (FP) PO SCH (09:48)
[2017-11-09] MEDS: PRENATAL VITAMINS W/ FOLIC ACID TABLET (FP) PO SCH (09:48)
[2017-11-09] MEDS: HYDROCHLOROTHIAZIDE 25 MG TABLET (FP) PO SCH (09:48)
[2017-11-09] MEDS: THIAMINE HCL 100 MG TABLET (FP) PO SCH (21:28)
[2017-11-09] MEDS: ATORVASTATIN CA 10 MG TABLET (FP) PO SCH (21:28)
[2017-11-09] MEDS: SUVOREXANT 10 MG TABLET PO PRN (21:29)
[2017-11-10] MEDS: metFORMIN HCL 500 MG TABLET (FP) PO SCH ×2 (06:19→16:50)
[2017-11-10] MEDS: TAMSULOSIN HCL 0.4 MG CAP.ER.24H (FP) PO SCH (08:04)
[2017-11-10] MEDS ORDERED: PT OWN MED DRAWER 7, Y5N ONE (09:11)
[2017-11-10] MEDS: LOSARTAN POTASSIUM 50 MG TABLET (FP) PO SCH (09:59)
[2017-11-10] MEDS: ASPIRIN 81 MG CHEWABLE TABLETS PO SCH (09:59)
[2017-11-10] MEDS: PRENATAL VITAMINS W/ FOLIC ACID TABLET (FP) PO SCH (09:59)
[2017-11-10] MEDS: HYDROCHLOROTHIAZIDE 25 MG TABLET (FP) PO SCH (10:00)
[2017-11-10] MEDS: SUVOREXANT 10 MG TABLET PO PRN (21:28)
[2017-11-10] MEDS: ATORVASTATIN CA 10 MG TABLET (FP) PO SCH (21:28)
[2017-11-10] MEDS: THIAMINE HCL 100 MG TABLET (FP) PO SCH (21:28)
[2017-11-11] MEDS: metFORMIN HCL 500 MG TABLET (FP) PO SCH ×2 (06:15→16:51)
[2017-11-11] MEDS: TAMSULOSIN HCL 0.4 MG CAP.ER.24H (FP) PO SCH (07:41)
[2017-11-11] MEDS: LOSARTAN POTASSIUM 50 MG TABLET (FP) PO SCH (09:44)
[2017-11-11] MEDS: HYDROCHLOROTHIAZIDE 25 MG TABLET (FP) PO SCH (09:44)
[2017-11-11] MEDS: PRENATAL VITAMINS W/ FOLIC ACID TABLET (FP) PO SCH (09:44)
[2017-11-11] MEDS: ASPIRIN 81 MG CHEWABLE TABLETS PO SCH (09:44)
[2017-11-11] MEDS: ATORVASTATIN CA 10 MG TABLET (FP) PO SCH (21:42)
[2017-11-11] MEDS: THIAMINE HCL 100 MG TABLET (FP) PO SCH (21:42)
[2017-11-11] MEDS: SUVOREXANT 10 MG TABLET PO PRN (21:43)
[2017-11-12] MEDS: metFORMIN HCL 500 MG TABLET (FP) PO SCH ×2 (06:18→16:48)
[2017-11-12] MEDS: TAMSULOSIN HCL 0.4 MG CAP.ER.24H (FP) PO SCH (07:30)
[2017-11-12] MEDS: HYDROCHLOROTHIAZIDE 25 MG TABLET (FP) PO SCH (09:39)
[2017-11-12] MEDS: LOSARTAN POTASSIUM 50 MG TABLET (FP) PO SCH (09:39)
[2017-11-12] MEDS: ASPIRIN 81 MG CHEWABLE TABLETS PO SCH (09:39)
[2017-11-12] MEDS: PRENATAL VITAMINS W/ FOLIC ACID TABLET (FP) PO SCH (09:39)
[2017-11-12] MEDS: ATORVASTATIN CA 10 MG TABLET (FP) PO SCH (21:15)
[2017-11-12] MEDS: THIAMINE HCL 100 MG TABLET (FP) PO SCH (21:15)
[2017-11-12] MEDS: SUVOREXANT 10 MG TABLET PO PRN (21:17)
[2017-11-13] MEDS: metFORMIN HCL 500 MG TABLET (FP) PO SCH ×2 (07:15→16:44)
[2017-11-13] MEDS: TAMSULOSIN HCL 0.4 MG CAP.ER.24H (FP) PO SCH (08:57)
[2017-11-13] MEDS: PRENATAL VITAMINS W/ FOLIC ACID TABLET (FP) PO SCH (09:57)
[2017-11-13] MEDS: ASPIRIN 81 MG CHEWABLE TABLETS PO SCH (09:57)
[2017-11-13] MEDS: HYDROCHLOROTHIAZIDE 25 MG TABLET (FP) PO SCH (09:57)
[2017-11-13] MEDS: LOSARTAN POTASSIUM 50 MG TABLET (FP) PO SCH (10:02)
[2017-11-13] MEDS: ATORVASTATIN CA 10 MG TABLET (FP) PO SCH (21:10)
[2017-11-13] MEDS: THIAMINE HCL 100 MG TABLET (FP) PO SCH (21:10)
[2017-11-13] MEDS: SUVOREXANT 10 MG TABLET PO PRN (21:10)
[2017-11-14] MEDS: metFORMIN HCL 500 MG TABLET (FP) PO SCH ×2 (07:27→17:18)
[2017-11-14] MEDS: TAMSULOSIN HCL 0.4 MG CAP.ER.24H (FP) PO SCH (08:47)
[2017-11-14] MEDS: HYDROCHLOROTHIAZIDE 25 MG TABLET (FP) PO SCH (09:47)
[2017-11-14] MEDS: ASPIRIN 81 MG CHEWABLE TABLETS PO SCH (09:47)
[2017-11-14] MEDS: LOSARTAN POTASSIUM 50 MG TABLET (FP) PO SCH (09:47)
[2017-11-14] MEDS: PRENATAL VITAMINS W/ FOLIC ACID TABLET (FP) PO SCH (09:47)
[2017-11-14] MEDS: SUVOREXANT 10 MG TABLET PO PRN (21:25)
[2017-11-14] MEDS: THIAMINE HCL 100 MG TABLET (FP) PO SCH (21:25)
[2017-11-14] MEDS: ATORVASTATIN CA 10 MG TABLET (FP) PO SCH (21:25)
[2017-11-15] MEDS: metFORMIN HCL 500 MG TABLET (FP) PO SCH ×2 (07:28→16:59)
[2017-11-15] MEDS: TAMSULOSIN HCL 0.4 MG CAP.ER.24H (FP) PO SCH (08:46)
[2017-11-15] MEDS: HYDROCHLOROTHIAZIDE 25 MG TABLET (FP) PO SCH (09:46)
[2017-11-15] MEDS: PRENATAL VITAMINS W/ FOLIC ACID TABLET (FP) PO SCH (09:46)
[2017-11-15] MEDS: LOSARTAN POTASSIUM 50 MG TABLET (FP) PO SCH (09:46)
[2017-11-15] MEDS: ASPIRIN 81 MG CHEWABLE TABLETS PO SCH (09:46)
[2017-11-15] MEDS: THIAMINE HCL 100 MG TABLET (FP) PO SCH (21:26)
[2017-11-15] MEDS: ATORVASTATIN CA 10 MG TABLET (FP) PO SCH (21:27)
[2017-11-15] MEDS: SUVOREXANT 10 MG TABLET PO PRN (21:27)
[2017-11-16] MEDS: metFORMIN HCL 500 MG TABLET (FP) PO SCH ×2 (06:16→17:14)
[2017-11-16] MEDS: TAMSULOSIN HCL 0.4 MG CAP.ER.24H (FP) PO SCH (07:46)
[2017-11-16] MEDS: ASPIRIN 81 MG CHEWABLE TABLETS PO SCH (10:12)
[2017-11-16] MEDS: HYDROCHLOROTHIAZIDE 25 MG TABLET (FP) PO SCH (10:12)
[2017-11-16] MEDS: LOSARTAN POTASSIUM 50 MG TABLET (FP) PO SCH (10:12)
[2017-11-16] MEDS: PRENATAL VITAMINS W/ FOLIC ACID TABLET (FP) PO SCH (10:12)
[2017-11-16] MEDS: ATORVASTATIN CA 10 MG TABLET (FP) PO SCH (21:35)
[2017-11-16] MEDS: THIAMINE HCL 100 MG TABLET (FP) PO SCH (21:35)
[2017-11-16] MEDS: SUVOREXANT 10 MG TABLET PO PRN (21:36)
[2017-11-17] MEDS: metFORMIN HCL 500 MG TABLET (FP) PO SCH ×2 (07:03→16:51)
[2017-11-17] MEDS: TAMSULOSIN HCL 0.4 MG CAP.ER.24H (FP) PO SCH (08:14)
[2017-11-17] MEDS: LOSARTAN POTASSIUM 50 MG TABLET (FP) PO SCH (10:14)
[2017-11-17] MEDS: PRENATAL VITAMINS W/ FOLIC ACID TABLET (FP) PO SCH (10:14)
[2017-11-17] MEDS: HYDROCHLOROTHIAZIDE 25 MG TABLET (FP) PO SCH (10:14)
[2017-11-17] MEDS: ASPIRIN 81 MG CHEWABLE TABLETS PO SCH (10:14)
[2017-11-17] MEDS: THIAMINE HCL 100 MG TABLET (FP) PO SCH (21:40)
[2017-11-17] MEDS: ATORVASTATIN CA 10 MG TABLET (FP) PO SCH (21:40)
[2017-11-17] MEDS: SUVOREXANT 10 MG TABLET PO PRN (21:40)
[2017-11-18] MEDS: metFORMIN HCL 500 MG TABLET (FP) PO SCH ×2 (07:14→16:48)
[2017-11-18] MEDS: ASPIRIN 81 MG CHEWABLE TABLETS PO SCH (09:19)
[2017-11-18] MEDS: LOSARTAN POTASSIUM 50 MG TABLET (FP) PO SCH (09:19)
[2017-11-18] MEDS: HYDROCHLOROTHIAZIDE 25 MG TABLET (FP) PO SCH (09:20)
[2017-11-18] MEDS: PRENATAL VITAMINS W/ FOLIC ACID TABLET (FP) PO SCH (09:20)
[2017-11-18] MEDS: TAMSULOSIN HCL 0.4 MG CAP.ER.24H (FP) PO SCH (09:20)
[2017-11-18] MEDS: THIAMINE HCL 100 MG TABLET (FP) PO SCH (21:28)
[2017-11-18] MEDS: SUVOREXANT 10 MG TABLET PO PRN (21:28)
[2017-11-18] MEDS: ATORVASTATIN CA 10 MG TABLET (FP) PO SCH (21:28)
[2017-11-19] MEDS: metFORMIN HCL 500 MG TABLET (FP) PO SCH ×2 (07:06→16:51)
[2017-11-19] MEDS: TAMSULOSIN HCL 0.4 MG CAP.ER.24H (FP) PO SCH (08:39)
[2017-11-19] MEDS: HYDROCHLOROTHIAZIDE 25 MG TABLET (FP) PO SCH (09:39)
[2017-11-19] MEDS: ASPIRIN 81 MG CHEWABLE TABLETS PO SCH (09:39)
[2017-11-19] MEDS: LOSARTAN POTASSIUM 50 MG TABLET (FP) PO SCH (09:40)
[2017-11-19] MEDS: PRENATAL VITAMINS W/ FOLIC ACID TABLET (FP) PO SCH (09:40)
[2017-11-19 11:04] VITALS: PULSE 73
--- NOTE | 2017-11-19 14:06 | PN ---
Psychiatric Progress Note Vital Signs: Vital Signs Period Temp Pulse Resp BP Sys/Gautam Pulse Ox Last 24 Hr 97.8 F 73-74 20 140-157/76-93 Date of Session: 11/19/17 Chief Complaint:: Discharge Note HPI: Patient addressing Alcohol and Cocaine ependence comorbid with Substance- Induced Mood Disordr and Substance-Induced Sleep Disorder ROS: DM, HTN, HLD, S/P CVSwith residal deficit, Obesity Current Medications: Active Medications Generic Name Dose Route Start Last Admin Trade Name Freq PRN Reason Stop Dose Admin Acetaminophen 650 mg 11/01/17 14:57 Tylenol - PO Q4H PRN FEVER Al Hydroxide/Mg Hydroxide 30 ml 11/01/17 14:57 Mylanta Oral Suspension - PO Q6H PRN DYSPEPSIA Aspirin 81 mg 11/02/17 10:00 11/19/17 09:39 Asa - PO 81 mg DAILY GILMA Administration Atorvastatin Calcium 10 mg 11/01/17 22:00 11/18/17 21:28 Lipitor - PO 10 mg HS GILMA Administration Eucalyptus/Menthol/Phenol/Sorbitol 1 each 11/01/17 14:57 Cepastat Lozenge - MM Q4H PRN SORE THROAT Guaifenesin 10 ml 11/01/17 14:57 Robitussin Dm - PO Q6H PRN COUGH Hydrochlorothiazide 25 mg 11/02/17 10:00 11/19/17 09:39 Hctz - PO 25 mg DAILY GILMA Administration Ibuprofen 400 mg 11/01/17 14:57 Motrin - PO Q6H PRN Pain Level 4-6 Loperamide HCl 4 mg 11/01/17 14:57 Imodium - PO Q6H PRN DIARRHEA Losartan Potassium 100 mg 11/02/17 10:00 11/19/17 09:40 Cozaar - PO 100 mg DAILY GILMA Administration Magnesium Citrate 300 ml 11/01/17 14:57 Citroma - PO Q48H PRN CONSTIPATION Magnesium Hydroxide 30 ml 11/01/17 14:57 Milk Of Magnesia - PO DAILY PRN CONSTIPATION Metformin HCl 1,000 mg 11/01/17 16:30 11/19/17 07:06 Glucophage - PO 1,000 mg BID@0700,1630 GIMLA Administration Multivit/Folic Acid/Iron 1 tab 11/02/17 10:00 11/19/17 09:40 Vitamins (Sjr) - PO 1 tab DAILY GILMA Administration Pseudoephedrine/Triprolidine 1 combo 11/01/17 14:57 Actifed - PO TID PRN NASAL CONGESTION Suvorexant 10 mg 11/17/17 22:00 11/18/17 21:28 Belsomra PO 11/20/17 21:59 10 mg HS PRN Administration INSOMNIA Tamsulosin HCl 0.4 mg 11/02/17 08:30 11/19/17 08:39 Flomax - PO 0.4 mg DAILY@0830 GILMA Administration Thiamine HCl 100 mg 11/01/17 22:00 11/18/17 21:28 Vitamin B1 - PO 100 mg HS GILMA Administration Current Side Effect: No Lab tests ordered: Yes Lab tests reviewed: Yes Provider note:: Patient will complete this program on 11/20/17. He has met his treatment goals and will continue to address his issues in outpatient program at [place]([facility]). 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 He is stable for discharge on 11/20/17 Total face to face time:: 35 Mental Status Exam - Mental Status Exam Alert and Oriented to: Time, Place, Person Patient Appearance: Well Groomed Mood: Hopeful, Euthymic Affect: Appropriate Patient Behavior: Cooperative Speech Pattern: Clear Voice Loudness: Normal Thought Process: Intact, Goal Oriented Thought Disorder: Not Present Hallucinations: Denies Suicidal Ideation: Denies Homicidal Ideation: Denies Insight/Judgement: Fair Sleep: Fair Appetite: Good Muscle strength/Tone: Normal Gait/Station: Normal Psychiatric Treatment Plan - Problem List (1) Alcohol dependence Current Visit: Yes (2) Cocaine abuse Current Visit: No (3) Substance induced mood disorder Current Visit: Yes (4) Substance-induced sleep disorder Current Visit: Yes (5) BPH (benign prostatic hyperplasia) Current Visit: No Qualifiers: Lower urinary tract symptom presence: symptoms present Lower urinary tract symptom detail: urinary frequency Qualified Code(s): N40.1 - Benign prostatic hyperplasia with lower urinary tract symptoms; R35.0 - Frequency of micturition ; R35.0 - Frequency of micturition (6) Diabetes mellitus treated with oral medication Current Visit: No (7) History of CVA with residual deficit Current Visit: No (8) Expressive aphasia Current Visit: No (9) Facial droop Current Visit: No Comment: left side, due to CVA (10) HTN (hypertension) Current Visit: No Qualifiers: Hypertension type: essential hypertension Qualified Code(s): I10 - Essential (primary) hypertension (11) Hypercholesteremia Current Visit: No (12) Obesity, Class III, BMI 40-49.9 (morbid obesity) Current Visit: No Initial treatment plan: Patient jany be discharged tomorrow and referred to [facility] for outpatient treatment
[2017-11-19] MEDS: THIAMINE HCL 100 MG TABLET (FP) PO SCH (21:04)
[2017-11-19] MEDS: SUVOREXANT 10 MG TABLET PO PRN (21:04)
[2017-11-19] MEDS: ATORVASTATIN CA 10 MG TABLET (FP) PO SCH (21:04)
[2017-11-20] MEDS: metFORMIN HCL 500 MG TABLET (FP) PO SCH (06:52)
[2017-11-20 06:56] VITALS: BP 123/80; TEMP 97.9
[2017-11-20] MEDS ORDERED: SUVOREXANT 10 MG TABLET PO PRN (07:17)
[2017-11-20] MEDS: TAMSULOSIN HCL 0.4 MG CAP.ER.24H (FP) PO SCH (07:54)
== END 2017-11-20 09:00 | disposition home or self-care (01) | DRG 895 ==
LOC: YASAS 14:48 → Y3W 14:49
PROVIDERS: ADMIT Psychiatry & Neurology Psychiatry; ATTEND Psychiatry & Neurology Psychiatry
PROC: HZ42ZZZ Group Counseling for Substance Abuse Treatment, Cognitive-Behavioral (ICD-10-PCS; principal; 2017-11-01)
DX: F10.20 Alcohol dependence, uncomplicated (principal); F19.282 Other psychoactive substance dependence with psychoactive substance-induced sleep disorder; Z68.42 Body mass index [BMI] 45.0-49.9, adult; F14.10 Cocaine abuse, uncomplicated; F19.24 Other psychoactive substance dependence with psychoactive substance-induced mood disorder; E11.9 Type 2 diabetes mellitus without complications; Z79.84 Long term (current) use of oral hypoglycemic drugs; E78.00 Pure hypercholesterolemia, unspecified; N40.1 Benign prostatic hyperplasia with lower urinary tract symptoms; R35.0 Frequency of micturition; E66.01 Morbid (severe) obesity due to excess calories; I69.892 Facial weakness following other cerebrovascular disease
CPT/HCPCS: 36415; 80048; 82962

== ENCOUNTER 2021-03-02 14:55 | Inpatient (IN) | payer OTHER ==
[2021-03-02 15:34] VITALS: BMI 38.5
[2021-03-02] MEDS ORDERED: MAGNESIUM HYDROX 2400MG/30ML ORAL SUSPENSION 30 ML CUP PO PRN (21:02)
[2021-03-02] MEDS ORDERED: MENTHOL/PHENOL 1 EACH UD MM PRN (21:02)
[2021-03-02] MEDS ORDERED: IBUPROFEN 400 MG TABLET (FP) PO PRN (21:02)
[2021-03-02] MEDS ORDERED: BISMUTH SUBSALICYLATE 524 MG/30 ML PO PRN (21:02)
[2021-03-02] MEDS ORDERED: ONDANSETRON *ODT* 4 MG TABLET SL PRN (21:02)
[2021-03-02] MEDS ORDERED: MAGNESIUM CITRATE 300 ML BOTTLE PO PRN (21:02)
[2021-03-02] MEDS ORDERED: ACETAMINOPHEN 325 MG TABLET (FP) PO PRN ×2 (21:02)
[2021-03-02] MEDS ORDERED: MAG HYDROX/AL HYDROX/SIMETH 30 ML UNIT-DOSE CUP PO PRN (21:02)
[2021-03-02] MEDS ORDERED: diazePAM 5 MG TABLET PO PRN (21:06)
[2021-03-02] MEDS ORDERED: diazePAM 5 MG TABLET PO ONE (22:02)
[2021-03-02] MEDS: GABAPENTIN 400 MG CAPSULE PO SCH (22:34)
[2021-03-02] MEDS: ATORVASTATIN CA 10 MG TABLET (FP) PO SCH (22:34)
[2021-03-02] MEDS: THIAMINE HCL 100 MG TABLET (FP) PO SCH (22:35)
[2021-03-02] MEDS: hydrOXYzine PAMOATE 25 MG CAPSULE (FP) PO SCH (22:35)
[2021-03-02] MEDS: INSULIN SLIDING SCALE (NOVOLOG) 1 VIAL SQ SCH (22:46)
[2021-03-02] MEDS: MELATONIN 5 MG TABLETS PO SCH (22:46)
[2021-03-03] MEDS: hydrOXYzine PAMOATE 25 MG CAPSULE (FP) PO SCH ×3 (06:30→22:37)
[2021-03-03] MEDS: INSULIN SLIDING SCALE (NOVOLOG) 1 VIAL SQ SCH ×4 (06:52→22:35)
[2021-03-03] MEDS ORDERED: metFORMIN HCL 500 MG TABLET (FP) PO SCH (07:00)
[2021-03-03] MEDS ORDERED: TAMSULOSIN HCL 0.4 MG CAP PO SCH (08:30)
[2021-03-03] MEDS ORDERED: LOSARTAN POTASSIUM 50 MG TABLET PO SCH (10:00)
[2021-03-03] MEDS ORDERED: PRENATAL VITAMINS W/ FOLIC ACID TABLET (FP) PO SCH (10:00)
[2021-03-03] MEDS ORDERED: ASPIRIN COATED 81 MG TABLET.EC PO SCH (10:00)
[2021-03-03] MEDS ORDERED: HYDROCHLOROTHIAZIDE 12.5 MG CAPSULE (FP) PO SCH (10:00)
[2021-03-03 10:30] LABS: HEMATOCRIT 36.5 % (35.4-49); MCHC 35.7 g/dl (32.0-35.9); MEAN CELL VOLUME 95.3 fl (80-96); MEAN PLT VOLUME 8.4 fl (7.5-11.1); PLATELET COUNT 144 10^3/uL (134-434); RBC 3.83 M/mm3 (4.00-5.60); WHITE BLOOD COUNT 4.9 K/mm3 (4.0-10.0)
[2021-03-03 10:31] LABS: ALBUMIN 3.3 g/dl (3.4-5.0); BLOOD UREA NITROGEN 19.8 mg/dL (7-18); CALCIUM 9.4 mg/dL (8.5-10.1)
[2021-03-03 10:36] LABS: BILIRUBIN,TOTAL 1.9 mg/dL (0.2-1); TOT PROT 6.5 g/dl (6.4-8.2)
[2021-03-03 10:37] LABS: CREATININE 1.1 mg/dL (0.55-1.3)
[2021-03-03] MEDS: GABAPENTIN 400 MG CAPSULE PO SCH ×2 (10:37→22:37)
[2021-03-03] MEDS ORDERED: hydrOXYzine PAMOATE 25 MG CAPSULE (FP) PO PRN (11:46)
[2021-03-03] MEDS ORDERED: POTASSIUM CHLORIDE TABS 20 MEQ TABLET.ER (FP) PO ONE (11:48)
[2021-03-03 14:04] VITALS: TEMP 97.1
[2021-03-03 17:00] VITALS: BP 138/73; PULSE 66
[2021-03-03] MEDS: ATORVASTATIN CA 10 MG TABLET (FP) PO SCH (22:37)
[2021-03-03] MEDS: THIAMINE HCL 100 MG TABLET (FP) PO SCH (22:38)
[2021-03-03] MEDS: MELATONIN 5 MG TABLETS PO SCH (22:39)
== END 2021-03-03 20:43 | disposition other institution (70) | DRG 897 ==
LOC: YASAS 14:55 → Y3N 20:18
PROVIDERS: ADMIT Allergy & Immunology; ATTEND Allergy & Immunology
PROC: HZ2ZZZZ Detoxification Services for Substance Abuse Treatment (ICD-10-PCS; principal; 2021-03-02)
DX: F10.20 Alcohol dependence, uncomplicated (principal); F14.20 Cocaine dependence, uncomplicated; F19.282 Other psychoactive substance dependence with psychoactive substance-induced sleep disorder; F19.24 Other psychoactive substance dependence with psychoactive substance-induced mood disorder; E87.6 Hypokalemia; E11.42 Type 2 diabetes mellitus with diabetic polyneuropathy; Z79.84 Long term (current) use of oral hypoglycemic drugs; I10 Essential (primary) hypertension; N40.1 Benign prostatic hyperplasia with lower urinary tract symptoms; R35.0 Frequency of micturition; R26.89 Other abnormalities of gait and mobility; I69.820 Aphasia following other cerebrovascular disease; I69.892 Facial weakness following other cerebrovascular disease; Z59.0 Homelessness
CPT/HCPCS: 36415; 80053; 82962; 85027; 86780; C9803; U0003; U0005

== ENCOUNTER 2021-03-03 20:00 | Inpatient (IN) | payer OTHER ==
[2021-03-03] MEDS ORDERED: hydrOXYzine PAMOATE 25 MG CAPSULE (FP) PO PRN (21:13)
[2021-03-03] MEDS ORDERED: NICOTINE POLACRILEX 2 MG GUM BUC PRN (21:13)
[2021-03-03] MEDS ORDERED: LOPERAMIDE HCL 2 MG CAPSULE PO PRN (21:13)
[2021-03-03] MEDS ORDERED: P-EPHED 60MG/TRIPROLIDI 2.5MG TABLET PO PRN (21:13)
[2021-03-03] MEDS ORDERED: ACETAMINOPHEN 325 MG TABLET (FP) PO PRN (21:13)
[2021-03-03] MEDS ORDERED: MENTHOL/PHENOL 1 EACH UD MM PRN (21:13)
[2021-03-03] MEDS ORDERED: guaiFENesin 200 MG/10 ML 10 ML UNIT-DOSE CUPS PO PRN (21:13)
[2021-03-03] MEDS ORDERED: MAGNESIUM CITRATE 300 ML BOTTLE PO PRN (21:13)
[2021-03-03] MEDS ORDERED: MAG HYDROX/AL HYDROX/SIMETH 30 ML UNIT-DOSE CUP PO PRN (21:13)
[2021-03-03] MEDS ORDERED: IBUPROFEN 400 MG TABLET (FP) PO PRN (21:13)
[2021-03-03] MEDS: ATORVASTATIN CA 10 MG TABLET (FP) PO SCH (22:25)
[2021-03-03] MEDS: MELATONIN 5 MG TABLETS PO SCH (22:25)
[2021-03-03] MEDS: GABAPENTIN 400 MG CAPSULE PO SCH (22:26)
[2021-03-03] MEDS: THIAMINE HCL 100 MG TABLET (FP) PO SCH (23:12)
[2021-03-03] MEDS: INSULIN SLIDING SCALE (NOVOLOG) 1 VIAL SQ SCH (23:25)
[2021-03-04] MEDS: metFORMIN HCL 500 MG TABLET (FP) PO SCH (07:03)
[2021-03-04] MEDS: INSULIN SLIDING SCALE (NOVOLOG) 1 VIAL SQ SCH ×4 (07:16→21:06)
[2021-03-04] MEDS: PRENATAL VITAMINS W/ FOLIC ACID TABLET (FP) PO SCH (10:06)
[2021-03-04] MEDS: TAMSULOSIN HCL 0.4 MG CAP PO SCH (10:07)
[2021-03-04] MEDS: ASPIRIN COATED 81 MG TABLET.EC PO SCH (10:07)
[2021-03-04] MEDS: NICOTINE 7 MG/24 HOURS TOPICAL PATCH TD SCH (10:07)
[2021-03-04] MEDS: LOSARTAN POTASSIUM 50 MG TABLET PO SCH (10:07)
[2021-03-04] MEDS: HYDROCHLOROTHIAZIDE 12.5 MG CAPSULE (FP) PO SCH (10:07)
[2021-03-04] MEDS: GABAPENTIN 400 MG CAPSULE PO SCH ×2 (10:07→21:08)
[2021-03-04] MEDS: MAGNESIUM HYDROX 2400MG/30ML ORAL SUSPENSION 30 ML CUP PO PRN (19:09)
[2021-03-04] MEDS: THIAMINE HCL 100 MG TABLET (FP) PO SCH (21:08)
[2021-03-04] MEDS: ATORVASTATIN CA 10 MG TABLET (FP) PO SCH (21:08)
[2021-03-04] MEDS: MELATONIN 5 MG TABLETS PO SCH (21:09)
[2021-03-05] MEDS: metFORMIN HCL 500 MG TABLET (FP) PO SCH (07:06)
[2021-03-05] MEDS: INSULIN SLIDING SCALE (NOVOLOG) 1 VIAL SQ SCH ×4 (07:07→22:50)
[2021-03-05] MEDS: PRENATAL VITAMINS W/ FOLIC ACID TABLET (FP) PO SCH (10:02)
[2021-03-05] MEDS: NICOTINE 7 MG/24 HOURS TOPICAL PATCH TD SCH (10:02)
[2021-03-05] MEDS: GABAPENTIN 400 MG CAPSULE PO SCH ×2 (10:03→22:17)
[2021-03-05] MEDS: ASPIRIN COATED 81 MG TABLET.EC PO SCH (10:03)
[2021-03-05] MEDS: TAMSULOSIN HCL 0.4 MG CAP PO SCH (10:03)
[2021-03-05] MEDS: LOSARTAN POTASSIUM 50 MG TABLET PO SCH (11:59)
[2021-03-05] MEDS: HYDROCHLOROTHIAZIDE 12.5 MG CAPSULE (FP) PO SCH (12:00)
[2021-03-05] MEDS: THIAMINE HCL 100 MG TABLET (FP) PO SCH (22:17)
[2021-03-05] MEDS: ATORVASTATIN CA 10 MG TABLET (FP) PO SCH (22:17)
[2021-03-05] MEDS: MELATONIN 5 MG TABLETS PO SCH (22:18)
[2021-03-06] MEDS: metFORMIN HCL 500 MG TABLET (FP) PO SCH (07:49)
[2021-03-06] MEDS: INSULIN SLIDING SCALE (NOVOLOG) 1 VIAL SQ SCH ×4 (07:51→21:01)
[2021-03-06] MEDS: TAMSULOSIN HCL 0.4 MG CAP PO SCH (09:52)
[2021-03-06] MEDS: GABAPENTIN 400 MG CAPSULE PO SCH ×2 (09:52→21:02)
[2021-03-06] MEDS: HYDROCHLOROTHIAZIDE 12.5 MG CAPSULE (FP) PO SCH (09:52)
[2021-03-06] MEDS: LOSARTAN POTASSIUM 50 MG TABLET PO SCH (09:52)
[2021-03-06] MEDS: PRENATAL VITAMINS W/ FOLIC ACID TABLET (FP) PO SCH (09:52)
[2021-03-06] MEDS: ASPIRIN COATED 81 MG TABLET.EC PO SCH (09:52)
[2021-03-06] MEDS: NICOTINE 7 MG/24 HOURS TOPICAL PATCH TD SCH (09:53)
[2021-03-06] MEDS: MAGNESIUM HYDROX 2400MG/30ML ORAL SUSPENSION 30 ML CUP PO PRN (17:15)
[2021-03-06] MEDS: THIAMINE HCL 100 MG TABLET (FP) PO SCH (21:02)
[2021-03-06] MEDS: ATORVASTATIN CA 10 MG TABLET (FP) PO SCH (21:02)
[2021-03-06] MEDS: MELATONIN 5 MG TABLETS PO SCH (21:02)
[2021-03-07] MEDS: metFORMIN HCL 500 MG TABLET (FP) PO SCH (07:04)
[2021-03-07] MEDS: INSULIN SLIDING SCALE (NOVOLOG) 1 VIAL SQ SCH ×4 (07:04→21:01)
[2021-03-07] MEDS: GABAPENTIN 400 MG CAPSULE PO SCH ×2 (09:46→21:02)
[2021-03-07] MEDS: PRENATAL VITAMINS W/ FOLIC ACID TABLET (FP) PO SCH (09:46)
[2021-03-07] MEDS: TAMSULOSIN HCL 0.4 MG CAP PO SCH (09:46)
[2021-03-07] MEDS: LOSARTAN POTASSIUM 50 MG TABLET PO SCH (09:46)
[2021-03-07] MEDS: ASPIRIN COATED 81 MG TABLET.EC PO SCH (09:47)
[2021-03-07] MEDS: HYDROCHLOROTHIAZIDE 12.5 MG CAPSULE (FP) PO SCH (09:47)
[2021-03-07] MEDS: NICOTINE 7 MG/24 HOURS TOPICAL PATCH TD SCH (09:47)
[2021-03-07] MEDS: THIAMINE HCL 100 MG TABLET (FP) PO SCH (21:02)
[2021-03-07] MEDS: ATORVASTATIN CA 10 MG TABLET (FP) PO SCH (21:02)
[2021-03-07] MEDS: MELATONIN 5 MG TABLETS PO SCH (21:02)
[2021-03-08] MEDS: INSULIN SLIDING SCALE (NOVOLOG) 1 VIAL SQ SCH ×4 (06:17→21:23)
[2021-03-08] MEDS: metFORMIN HCL 500 MG TABLET (FP) PO SCH (06:17)
[2021-03-08] MEDS ORDERED: MASKS NR ONE (07:02)
[2021-03-08] MEDS: PRENATAL VITAMINS W/ FOLIC ACID TABLET (FP) PO SCH (10:17)
[2021-03-08] MEDS: GABAPENTIN 400 MG CAPSULE PO SCH ×2 (10:18→21:23)
[2021-03-08] MEDS: NICOTINE 7 MG/24 HOURS TOPICAL PATCH TD SCH (10:18)
[2021-03-08] MEDS: LOSARTAN POTASSIUM 50 MG TABLET PO SCH (10:18)
[2021-03-08] MEDS: ASPIRIN COATED 81 MG TABLET.EC PO SCH (10:18)
[2021-03-08] MEDS: HYDROCHLOROTHIAZIDE 12.5 MG CAPSULE (FP) PO SCH (10:18)
[2021-03-08] MEDS: TAMSULOSIN HCL 0.4 MG CAP PO SCH (10:18)
[2021-03-08] MEDS ORDERED: INSULIN (NOVOLOG) ASPART 100 UNITS/ML 10ML VIAL ONE (12:17)
[2021-03-08] MEDS: MELATONIN 5 MG TABLETS PO SCH (21:22)
[2021-03-08] MEDS: THIAMINE HCL 100 MG TABLET (FP) PO SCH (21:23)
[2021-03-08] MEDS: ATORVASTATIN CA 10 MG TABLET (FP) PO SCH (21:23)
[2021-03-09] MEDS: INSULIN SLIDING SCALE (NOVOLOG) 1 VIAL SQ SCH ×4 (06:19→21:36)
[2021-03-09] MEDS: metFORMIN HCL 500 MG TABLET (FP) PO SCH (06:19)
[2021-03-09 07:21] VITALS: PULSE 58
[2021-03-09] MEDS: PRENATAL VITAMINS W/ FOLIC ACID TABLET (FP) PO SCH (09:52)
[2021-03-09] MEDS: GABAPENTIN 400 MG CAPSULE PO SCH ×2 (09:52→21:35)
[2021-03-09] MEDS: HYDROCHLOROTHIAZIDE 12.5 MG CAPSULE (FP) PO SCH (09:52)
[2021-03-09] MEDS: TAMSULOSIN HCL 0.4 MG CAP PO SCH (09:52)
[2021-03-09] MEDS: ASPIRIN COATED 81 MG TABLET.EC PO SCH (09:53)
[2021-03-09] MEDS: LOSARTAN POTASSIUM 50 MG TABLET PO SCH (09:53)
[2021-03-09] MEDS: NICOTINE 7 MG/24 HOURS TOPICAL PATCH TD SCH (09:53)
[2021-03-09] MEDS ORDERED: INSULIN (NOVOLOG) ASPART 100 UNITS/ML 10ML VIAL ONE ×2 (11:58→17:11)
[2021-03-09] MEDS: MELATONIN 5 MG TABLETS PO SCH (21:34)
[2021-03-09] MEDS: THIAMINE HCL 100 MG TABLET (FP) PO SCH (21:34)
[2021-03-09] MEDS: ATORVASTATIN CA 10 MG TABLET (FP) PO SCH (21:35)
[2021-03-10] MEDS: INSULIN SLIDING SCALE (NOVOLOG) 1 VIAL SQ SCH (06:40)
[2021-03-10] MEDS: metFORMIN HCL 500 MG TABLET (FP) PO SCH (06:40)
[2021-03-10 06:57] VITALS: BP 128/66; TEMP 97.1
[2021-03-10] MEDS: LOSARTAN POTASSIUM 50 MG TABLET PO SCH (09:36)
[2021-03-10] MEDS: PRENATAL VITAMINS W/ FOLIC ACID TABLET (FP) PO SCH (09:36)
[2021-03-10] MEDS: TAMSULOSIN HCL 0.4 MG CAP PO SCH (09:37)
[2021-03-10] MEDS: NICOTINE 7 MG/24 HOURS TOPICAL PATCH TD SCH (09:37)
[2021-03-10] MEDS: ASPIRIN COATED 81 MG TABLET.EC PO SCH (09:37)
[2021-03-10] MEDS: GABAPENTIN 400 MG CAPSULE PO SCH (09:37)
[2021-03-10] MEDS: HYDROCHLOROTHIAZIDE 12.5 MG CAPSULE (FP) PO SCH (09:37)
[2021-03-10] MEDS ORDERED: PT OWN MED DRAWER 7, Y5N ONE (10:23)
== END 2021-03-10 10:15 | disposition home or self-care (01) | DRG 895 ==
LOC: YASAS 20:00 → Y5N 20:08
PROVIDERS: ADMIT Allergy & Immunology; ATTEND Allergy & Immunology
PROC: HZ42ZZZ Group Counseling for Substance Abuse Treatment, Cognitive-Behavioral (ICD-10-PCS; principal; 2021-03-03)
DX: F10.20 Alcohol dependence, uncomplicated (principal); F14.10 Cocaine abuse, uncomplicated; E78.00 Pure hypercholesterolemia, unspecified; E11.9 Type 2 diabetes mellitus without complications; Z79.84 Long term (current) use of oral hypoglycemic drugs; I10 Essential (primary) hypertension; N40.1 Benign prostatic hyperplasia with lower urinary tract symptoms; R35.0 Frequency of micturition; E66.9 Obesity, unspecified; Z68.37 Body mass index [BMI] 37.0-37.9, adult; Z86.73 Personal history of transient ischemic attack (TIA), and cerebral infarction without residual deficits; Z98.890 Other specified postprocedural states
CPT/HCPCS: 82962

== ENCOUNTER 2022-01-22 14:23 | Inpatient (IN) | payer OTHER ==
[2022-01-22 15:01] VITALS: BMI 36.3
[2022-01-22] MEDS ORDERED: IBUPROFEN 400 MG TABLET (FP) PO PRN (17:15)
[2022-01-22] MEDS ORDERED: DICYCLOMINE HCL 10 MG CAPSULE PO PRN (17:15)
[2022-01-22] MEDS ORDERED: MAGNESIUM HYDROX 2400MG/30ML ORAL SUSPENSION 30 ML CUP PO PRN (17:15)
[2022-01-22] MEDS ORDERED: IBUPROFEN 600 MG TABLET (FP) PO PRN (17:15)
[2022-01-22] MEDS ORDERED: ONDANSETRON *ODT* 4 MG TABLET SL PRN (17:15)
[2022-01-22] MEDS ORDERED: ACETAMINOPHEN 325 MG TABLET (FP) PO PRN ×2 (17:15)
[2022-01-22] MEDS ORDERED: MAGNESIUM CITRATE 300 ML BOTTLE PO PRN (17:15)
[2022-01-22] MEDS ORDERED: METHOCARBAMOL 500 MG TABLET PO PRN (17:15)
[2022-01-22] MEDS ORDERED: chlordiazePOXIDE HCL 25 MG CAPSULE PO PRN (17:15)
[2022-01-22] MEDS ORDERED: LOPERAMIDE HCL 2 MG CAPSULE PO PRN (17:15)
[2022-01-22] MEDS ORDERED: MAG HYDROX/AL HYDROX/SIMETH 30 ML UNIT-DOSE CUP PO PRN (17:15)
[2022-01-22] MEDS ORDERED: NICOTINE 10 MG CARTRIDGE (INHALER) IH PRN (17:15)
[2022-01-22] MEDS ORDERED: BENZOCAINE/MENTHOL (CHLORASEPTIC ) LOZENGE MM PRN (17:15)
[2022-01-22] MEDS ORDERED: BISMUTH SUBSALICYLATE 524 MG/30 ML PO PRN (17:15)
[2022-01-23] MEDS: chlordiazePOXIDE HCL 25 MG CAPSULE PO SCH ×5 (00:08→22:40)
[2022-01-23] MEDS: ATORVASTATIN CA 10 MG TABLET (FP) PO SCH ×2 (00:10→22:40)
[2022-01-23] MEDS: hydrOXYzine PAMOATE 25 MG CAPSULE (FP) PO SCH ×7 (00:10→22:40)
[2022-01-23] MEDS: MELATONIN 5 MG TABLETS PO SCH ×2 (00:10→22:40)
[2022-01-23] MEDS: THIAMINE HCL 100 MG TABLET (FP) PO SCH ×2 (00:11→22:40)
[2022-01-23] MEDS: ASPIRIN COATED 81 MG TABLET.EC PO SCH ×2 (00:21→11:18)
[2022-01-23] MEDS ORDERED: PATIENT'S OWN MEDICATION (NON-FORMULARY) (Empagliflozin [Jardiance] 10 MG Tablet) PO SCH (10:00)
[2022-01-23 10:50] LABS: HEMATOCRIT 38.2 % (35.4-49); HEMOGLOBIN 13.4 GM/dL (11.7-16.9); MCH 31.5 pg (25.7-33.7); MEAN CELL VOLUME 89.9 fl (80-96); PLATELET COUNT 157 10^3/uL (134-434); RBC 4.25 M/mm3 (4.00-5.60); RDW 12.4 % (11.9-15.9); WHITE BLOOD COUNT 4.2 K/mm3 (4.0-10.0)
[2022-01-23 10:55] LABS: ALBUMIN 3.2 g/dl (3.4-5.0); BLOOD UREA NITROGEN 13.8 mg/dL (7-18); CALCIUM 8.8 mg/dL (8.5-10.1)
[2022-01-23 11:01] LABS: BILIRUBIN,TOTAL 1.8 mg/dL (0.2-1); TOT PROT 6.6 g/dl (6.4-8.2)
[2022-01-23] MEDS: PRENATAL VITAMINS W/ FOLIC ACID TABLET (FP) PO SCH (11:18)
[2022-01-23] MEDS: LOSARTAN POTASSIUM 50 MG TABLET PO SCH (11:18)
[2022-01-23] MEDS: TAMSULOSIN HCL 0.4 MG CAP PO SCH (11:18)
[2022-01-23] MEDS: HYDROCHLOROTHIAZIDE 12.5 MG CAPSULE (FP) PO SCH (11:18)
[2022-01-23] MEDS: metFORMIN HCL 500 MG TABLET (FP) PO SCH (11:19)
[2022-01-23] MEDS ORDERED: POTASSIUM CHLORIDE ORAL LIQUID 20 MEQ/15 ML PO ONE ×2 (15:03→21:00)
[2022-01-24] MEDS: hydrOXYzine PAMOATE 25 MG CAPSULE (FP) PO SCH ×5 (05:49→22:56)
[2022-01-24] MEDS: chlordiazePOXIDE HCL 25 MG CAPSULE PO SCH ×4 (05:49→22:56)
[2022-01-24] MEDS: metFORMIN HCL 500 MG TABLET (FP) PO SCH (06:06)
[2022-01-24 10:25] LABS: BILIRUBIN,TOTAL 0.9 mg/dL (0.2-1)
[2022-01-24] MEDS: TAMSULOSIN HCL 0.4 MG CAP PO SCH (10:36)
[2022-01-24] MEDS: LOSARTAN POTASSIUM 50 MG TABLET PO SCH (10:36)
[2022-01-24] MEDS: PRENATAL VITAMINS W/ FOLIC ACID TABLET (FP) PO SCH (10:37)
[2022-01-24] MEDS: ASPIRIN COATED 81 MG TABLET.EC PO SCH (10:37)
[2022-01-24] MEDS: HYDROCHLOROTHIAZIDE 12.5 MG CAPSULE (FP) PO SCH (10:37)
[2022-01-24] MEDS: THIAMINE HCL 100 MG TABLET (FP) PO SCH (22:56)
[2022-01-24] MEDS: MELATONIN 5 MG TABLETS PO SCH (22:56)
[2022-01-24] MEDS: ATORVASTATIN CA 10 MG TABLET (FP) PO SCH (22:56)
[2022-01-25] MEDS ORDERED: chlordiazePOXIDE HCL 10 MG CAPSULE PO PRN
[2022-01-25] MEDS: hydrOXYzine PAMOATE 25 MG CAPSULE (FP) PO SCH ×5 (07:20→22:15)
[2022-01-25] MEDS: metFORMIN HCL 500 MG TABLET (FP) PO SCH (07:20)
[2022-01-25] MEDS: chlordiazePOXIDE HCL 10 MG CAPSULE PO SCH ×4 (07:21→22:15)
[2022-01-25] MEDS: TAMSULOSIN HCL 0.4 MG CAP PO SCH (09:20)
[2022-01-25] MEDS: HYDROCHLOROTHIAZIDE 12.5 MG CAPSULE (FP) PO SCH (10:08)
[2022-01-25] MEDS: LOSARTAN POTASSIUM 50 MG TABLET PO SCH (10:08)
[2022-01-25] MEDS: PRENATAL VITAMINS W/ FOLIC ACID TABLET (FP) PO SCH (10:08)
[2022-01-25] MEDS: ASPIRIN COATED 81 MG TABLET.EC PO SCH (10:08)
[2022-01-25] MEDS: ATORVASTATIN CA 10 MG TABLET (FP) PO SCH (22:15)
[2022-01-25] MEDS: MELATONIN 5 MG TABLETS PO SCH (22:15)
[2022-01-25] MEDS: THIAMINE HCL 100 MG TABLET (FP) PO SCH (22:15)
[2022-01-26] MEDS: hydrOXYzine PAMOATE 25 MG CAPSULE (FP) PO SCH ×5 (06:52→22:41)
[2022-01-26] MEDS: chlordiazePOXIDE HCL 10 MG CAPSULE PO SCH ×2 (06:53→17:57)
[2022-01-26] MEDS: metFORMIN HCL 500 MG TABLET (FP) PO SCH (06:55)
[2022-01-26] MEDS: TAMSULOSIN HCL 0.4 MG CAP PO SCH (07:55)
[2022-01-26] MEDS: HYDROCHLOROTHIAZIDE 12.5 MG CAPSULE (FP) PO SCH (10:31)
[2022-01-26] MEDS: ASPIRIN COATED 81 MG TABLET.EC PO SCH (10:31)
[2022-01-26] MEDS: PRENATAL VITAMINS W/ FOLIC ACID TABLET (FP) PO SCH (10:31)
[2022-01-26] MEDS: LOSARTAN POTASSIUM 50 MG TABLET PO SCH (10:31)
[2022-01-26] MEDS: ATORVASTATIN CA 10 MG TABLET (FP) PO SCH (22:41)
[2022-01-26] MEDS: MELATONIN 5 MG TABLETS PO SCH (22:41)
[2022-01-26] MEDS: THIAMINE HCL 100 MG TABLET (FP) PO SCH (22:41)
[2022-01-27] MEDS ORDERED: chlordiazePOXIDE HCL 10 MG CAPSULE PO ONE (05:00)
[2022-01-27] MEDS: hydrOXYzine PAMOATE 25 MG CAPSULE (FP) PO SCH ×2 (06:58→09:46)
[2022-01-27] MEDS: metFORMIN HCL 500 MG TABLET (FP) PO SCH (06:58)
[2022-01-27] MEDS ORDERED: INSULIN SLIDING SCALE (NOVOLOG) 1 VIAL SQ ONE (07:06)
[2022-01-27] MEDS: LOSARTAN POTASSIUM 50 MG TABLET PO SCH (09:46)
[2022-01-27] MEDS: HYDROCHLOROTHIAZIDE 12.5 MG CAPSULE (FP) PO SCH (09:46)
[2022-01-27] MEDS: ASPIRIN COATED 81 MG TABLET.EC PO SCH (09:47)
[2022-01-27] MEDS: PRENATAL VITAMINS W/ FOLIC ACID TABLET (FP) PO SCH (09:47)
[2022-01-27] MEDS: TAMSULOSIN HCL 0.4 MG CAP PO SCH (09:47)
[2022-01-27 12:50] VITALS: BP 175/85; PULSE 64; TEMP 96.9
== END 2022-01-27 12:56 | disposition other institution (70) | DRG 897 ==
LOC: YASAS 14:23 → Y3N 20:38
PROVIDERS: ADMIT Allergy & Immunology; ATTEND Family Medicine Addiction Medicine
PROC: HZ2ZZZZ Detoxification Services for Substance Abuse Treatment (ICD-10-PCS; principal; 2022-01-22)
DX: F10.230 Alcohol dependence with withdrawal, uncomplicated (principal); F14.20 Cocaine dependence, uncomplicated; F19.24 Other psychoactive substance dependence with psychoactive substance-induced mood disorder; I10 Essential (primary) hypertension; E11.9 Type 2 diabetes mellitus without complications; E88.09 Other disorders of plasma-protein metabolism, not elsewhere classified; E87.6 Hypokalemia; E80.6 Other disorders of bilirubin metabolism; N40.0 Benign prostatic hyperplasia without lower urinary tract symptoms; R35.0 Frequency of micturition; E66.9 Obesity, unspecified; Z68.36 Body mass index [BMI] 36.0-36.9, adult; I69.820 Aphasia following other cerebrovascular disease; I69.892 Facial weakness following other cerebrovascular disease
CPT/HCPCS: 36415; 80053; 82247; 82962; 83036; 84132; 85027; 86780; C9803-CS; U0003; U0005

== ENCOUNTER 2022-01-27 13:14 | Inpatient (IN) | payer OTHER ==
[2022-01-27] MEDS ORDERED: MAGNESIUM HYDROX 2400MG/30ML ORAL SUSPENSION 30 ML CUP PO PRN (14:16)
[2022-01-27] MEDS ORDERED: IBUPROFEN 400 MG TABLET (FP) PO PRN (14:16)
[2022-01-27] MEDS ORDERED: LOPERAMIDE HCL 2 MG CAPSULE PO PRN (14:16)
[2022-01-27] MEDS ORDERED: MAGNESIUM CITRATE 300 ML BOTTLE PO PRN (14:16)
[2022-01-27] MEDS ORDERED: NICOTINE 10 MG CARTRIDGE (INHALER) IH PRN (14:16)
[2022-01-27] MEDS ORDERED: P-EPHED 60MG/TRIPROLIDI 2.5MG TABLET PO PRN (14:16)
[2022-01-27] MEDS ORDERED: hydrOXYzine PAMOATE 25 MG CAPSULE (FP) PO PRN (14:16)
[2022-01-27] MEDS ORDERED: ACETAMINOPHEN 325 MG TABLET (FP) PO PRN (14:16)
[2022-01-27] MEDS ORDERED: MAG HYDROX/AL HYDROX/SIMETH 30 ML UNIT-DOSE CUP PO PRN (14:16)
[2022-01-27] MEDS ORDERED: BENZOCAINE/MENTHOL (CHLORASEPTIC ) LOZENGE MM PRN (14:16)
[2022-01-27] MEDS ORDERED: guaiFENesin 200 MG/10 ML 10 ML UNIT-DOSE CUPS PO PRN (14:16)
[2022-01-27] MEDS: MELATONIN 5 MG TABLETS PO SCH (21:31)
[2022-01-27] MEDS: THIAMINE HCL 100 MG TABLET (FP) PO SCH (21:31)
[2022-01-27] MEDS: ATORVASTATIN CA 10 MG TABLET (FP) PO SCH (21:31)
[2022-01-28] MEDS: metFORMIN HCL 500 MG TABLET (FP) PO SCH (07:13)
[2022-01-28] MEDS: ASPIRIN COATED 81 MG TABLET.EC PO SCH (10:08)
[2022-01-28] MEDS: LOSARTAN POTASSIUM 50 MG TABLET PO SCH (10:08)
[2022-01-28] MEDS: HYDROCHLOROTHIAZIDE 12.5 MG CAPSULE (FP) PO SCH (10:08)
[2022-01-28] MEDS: PRENATAL VITAMINS W/ FOLIC ACID TABLET (FP) PO SCH (10:09)
[2022-01-28] MEDS: TAMSULOSIN HCL 0.4 MG CAP PO SCH (10:09)
[2022-01-28] MEDS: NICOTINE 7 MG/24 HOURS TOPICAL PATCH TD SCH (10:09)
[2022-01-28] MEDS: MELATONIN 5 MG TABLETS PO SCH (21:43)
[2022-01-28] MEDS: THIAMINE HCL 100 MG TABLET (FP) PO SCH (21:43)
[2022-01-28] MEDS: ATORVASTATIN CA 10 MG TABLET (FP) PO SCH (21:43)
[2022-01-29] MEDS: metFORMIN HCL 500 MG TABLET (FP) PO SCH (06:43)
[2022-01-29] MEDS: LOSARTAN POTASSIUM 50 MG TABLET PO SCH (09:57)
[2022-01-29] MEDS: HYDROCHLOROTHIAZIDE 12.5 MG CAPSULE (FP) PO SCH (09:57)
[2022-01-29] MEDS: TAMSULOSIN HCL 0.4 MG CAP PO SCH (09:57)
[2022-01-29] MEDS: ASPIRIN COATED 81 MG TABLET.EC PO SCH (09:57)
[2022-01-29] MEDS: PRENATAL VITAMINS W/ FOLIC ACID TABLET (FP) PO SCH (09:58)
[2022-01-29] MEDS ORDERED: ATORVASTATIN CA 10 MG TABLET (FP) PO SCH (09:59)
[2022-01-29] MEDS ORDERED: HYDROCHLOROTHIAZIDE 12.5 MG CAPSULE (FP) PO SCH (09:59)
[2022-01-29] MEDS ORDERED: LOSARTAN POTASSIUM 50 MG TABLET PO SCH (09:59)
[2022-01-29] MEDS: NICOTINE 7 MG/24 HOURS TOPICAL PATCH TD SCH (09:59)
[2022-01-29] MEDS: INSULIN SLIDING SCALE (NOVOLOG) 1 VIAL SQ SCH ×3 (11:46→21:34)
[2022-01-29] MEDS ORDERED: INSULIN (NOVOLOG) ASPART 100 UNITS/ML 10ML VIAL ONE ×2 (11:47→16:42)
[2022-01-29] MEDS: GABAPENTIN 400 MG PO SCH ×2 (12:05→21:31)
[2022-01-29] MEDS: OMEGA-3 ACID ETHYL ESTERS (FATTY-ACIDS) 1 GM CAPSULE (FP) PO SCH (12:06)
[2022-01-29] MEDS: MELATONIN 5 MG TABLETS PO SCH (21:31)
[2022-01-29] MEDS: THIAMINE HCL 100 MG TABLET (FP) PO SCH (21:31)
[2022-01-29] MEDS: ATORVASTATIN CA 10 MG PO SCH (21:31)
[2022-01-29] MEDS ORDERED: cloNIDine HCL 0.1 MG TABLET PO ONE (22:06)
[2022-01-30] MEDS: INSULIN SLIDING SCALE (NOVOLOG) 1 VIAL SQ SCH ×4 (06:24→21:35)
[2022-01-30] MEDS ORDERED: INSULIN (NOVOLOG) ASPART 100 UNITS/ML 10ML VIAL ONE ×2 (06:25→21:44)
[2022-01-30] MEDS: metFORMIN HCL 500 MG TABLET (FP) PO SCH (06:26)
[2022-01-30] MEDS ORDERED: PATIENT'S OWN MEDICATION (NON-FORMULARY) (Losartan Potassium [Cozaar] 100 MG Tablet) PO SCH (10:00)
[2022-01-30] MEDS ORDERED: HYDROCHLOROTHIAZIDE PO SCH (10:00)
[2022-01-30] MEDS: GABAPENTIN 400 MG PO SCH ×2 (13:31→21:33)
[2022-01-30] MEDS: OMEGA-3 ACID ETHYL ESTERS (FATTY-ACIDS) 1 GM CAPSULE (FP) PO SCH (13:31)
[2022-01-30] MEDS: ASPIRIN COATED 81 MG TABLET.EC PO SCH (13:31)
[2022-01-30] MEDS: PRENATAL VITAMINS W/ FOLIC ACID TABLET (FP) PO SCH (13:31)
[2022-01-30] MEDS: TAMSULOSIN HCL 0.4 MG CAP PO SCH (13:31)
[2022-01-30] MEDS: NICOTINE 7 MG/24 HOURS TOPICAL PATCH TD SCH (13:31)
[2022-01-30] MEDS: THIAMINE HCL 100 MG TABLET (FP) PO SCH (21:32)
[2022-01-30] MEDS: ATORVASTATIN CA 10 MG PO SCH (21:33)
[2022-01-30] MEDS: MELATONIN 5 MG TABLETS PO SCH (21:33)
[2022-01-30] MEDS ORDERED: INSULIN (LEVEMIR) 100 UNITS/ML UNITS SQ ONE (21:44)
[2022-01-31] MEDS: metFORMIN HCL 500 MG TABLET (FP) PO SCH (07:31)
[2022-01-31] MEDS ORDERED: INSULIN (NOVOLOG) ASPART 100 UNITS/ML 10ML VIAL ONE ×3 (07:32→21:21)
[2022-01-31] MEDS: INSULIN SLIDING SCALE (NOVOLOG) 1 VIAL SQ SCH ×4 (07:33→21:22)
[2022-01-31] MEDS: TAMSULOSIN HCL 0.4 MG CAP PO SCH (07:53)
[2022-01-31] MEDS: LOSARTAN POTASSIUM 50 MG TABLET PO SCH (08:32)
[2022-01-31] MEDS: HYDROCHLOROTHIAZIDE 12.5 MG CAPSULE (FP) PO SCH (08:32)
[2022-01-31] MEDS ORDERED: TETRAHYDROZOLINE HCL EYE DROPS OD SCH (10:00)
[2022-01-31] MEDS: ASPIRIN COATED 81 MG TABLET.EC PO SCH (10:22)
[2022-01-31] MEDS: OMEGA-3 ACID ETHYL ESTERS (FATTY-ACIDS) 1 GM CAPSULE (FP) PO SCH (10:23)
[2022-01-31] MEDS: GABAPENTIN 400 MG CAPSULE PO SCH ×2 (10:23→21:21)
[2022-01-31] MEDS: PRENATAL VITAMINS W/ FOLIC ACID TABLET (FP) PO SCH (10:23)
[2022-01-31] MEDS: NICOTINE 7 MG/24 HOURS TOPICAL PATCH TD SCH (10:23)
[2022-01-31] MEDS ORDERED: COLLOIDAL OATMEAL 1 BAR EACH TP PRN (14:37)
[2022-01-31] MEDS: TETRAHYDROZOLINE HCL EYE DROPS OU SCH ×2 (16:11→21:39)
[2022-01-31] MEDS: THIAMINE HCL 100 MG TABLET (FP) PO SCH (21:19)
[2022-01-31] MEDS: MELATONIN 5 MG TABLETS PO SCH (21:20)
[2022-01-31] MEDS: ATORVASTATIN CA 10 MG PO SCH (21:20)
[2022-02-01] MEDS ORDERED: INSULIN (NOVOLOG) ASPART 100 UNITS/ML 10ML VIAL ONE ×2 (06:32→16:31)
[2022-02-01] MEDS: INSULIN SLIDING SCALE (NOVOLOG) 1 VIAL SQ SCH ×4 (06:32→21:09)
[2022-02-01] MEDS: LOSARTAN POTASSIUM 50 MG TABLET PO SCH (06:33)
[2022-02-01] MEDS: metFORMIN HCL 500 MG TABLET (FP) PO SCH (06:33)
[2022-02-01] MEDS: HYDROCHLOROTHIAZIDE 12.5 MG CAPSULE (FP) PO SCH (06:33)
[2022-02-01] MEDS: TAMSULOSIN HCL 0.4 MG CAP PO SCH (10:03)
[2022-02-01] MEDS: ASPIRIN COATED 81 MG TABLET.EC PO SCH (10:03)
[2022-02-01] MEDS: GABAPENTIN 400 MG CAPSULE PO SCH ×2 (10:04→21:06)
[2022-02-01] MEDS: OMEGA-3 ACID ETHYL ESTERS (FATTY-ACIDS) 1 GM CAPSULE (FP) PO SCH (10:04)
[2022-02-01] MEDS: NICOTINE 7 MG/24 HOURS TOPICAL PATCH TD SCH (10:05)
[2022-02-01] MEDS: TETRAHYDROZOLINE HCL EYE DROPS OU SCH ×2 (10:05→21:10)
[2022-02-01] MEDS: PRENATAL VITAMINS W/ FOLIC ACID TABLET (FP) PO SCH (10:05)
[2022-02-01] MEDS: MELATONIN 5 MG TABLETS PO SCH (21:06)
[2022-02-01] MEDS: THIAMINE HCL 100 MG TABLET (FP) PO SCH (21:06)
[2022-02-01] MEDS: ATORVASTATIN CA 10 MG TABLET (FP) PO SCH (21:07)
[2022-02-02] MEDS: LOSARTAN POTASSIUM 50 MG TABLET PO SCH (07:25)
[2022-02-02] MEDS: HYDROCHLOROTHIAZIDE 12.5 MG CAPSULE (FP) PO SCH (07:26)
[2022-02-02] MEDS: metFORMIN HCL 500 MG TABLET (FP) PO SCH (07:26)
[2022-02-02] MEDS: INSULIN SLIDING SCALE (NOVOLOG) 1 VIAL SQ SCH ×4 (07:28→21:28)
[2022-02-02] MEDS ORDERED: INSULIN (NOVOLOG) ASPART 100 UNITS/ML 10ML VIAL ONE ×3 (07:29→22:37)
[2022-02-02] MEDS: GABAPENTIN 400 MG CAPSULE PO SCH ×2 (09:42→21:29)
[2022-02-02] MEDS: TAMSULOSIN HCL 0.4 MG CAP PO SCH (09:43)
[2022-02-02] MEDS: TETRAHYDROZOLINE HCL EYE DROPS OU SCH ×2 (09:43→21:29)
[2022-02-02] MEDS: PRENATAL VITAMINS W/ FOLIC ACID TABLET (FP) PO SCH (09:43)
[2022-02-02] MEDS: NICOTINE 7 MG/24 HOURS TOPICAL PATCH TD SCH (09:43)
[2022-02-02] MEDS: ASPIRIN COATED 81 MG TABLET.EC PO SCH (09:43)
[2022-02-02] MEDS: OMEGA-3 ACID ETHYL ESTERS (FATTY-ACIDS) 1 GM CAPSULE (FP) PO SCH (12:10)
[2022-02-02] MEDS: MELATONIN 5 MG TABLETS PO SCH (21:27)
[2022-02-02] MEDS: THIAMINE HCL 100 MG TABLET (FP) PO SCH (21:27)
[2022-02-02] MEDS: ATORVASTATIN CA 10 MG TABLET (FP) PO SCH (21:29)
[2022-02-03] MEDS ORDERED: INSULIN (NOVOLOG) ASPART 100 UNITS/ML 10ML VIAL ONE ×3 (07:07→16:35)
[2022-02-03] MEDS: INSULIN SLIDING SCALE (NOVOLOG) 1 VIAL SQ SCH ×4 (07:07→21:23)
[2022-02-03] MEDS: metFORMIN HCL 500 MG TABLET (FP) PO SCH (07:09)
[2022-02-03] MEDS: HYDROCHLOROTHIAZIDE 12.5 MG CAPSULE (FP) PO SCH (07:30)
[2022-02-03] MEDS: LOSARTAN POTASSIUM 50 MG TABLET PO SCH (07:30)
[2022-02-03] MEDS: ASPIRIN COATED 81 MG TABLET.EC PO SCH (09:40)
[2022-02-03] MEDS: GABAPENTIN 400 MG CAPSULE PO SCH ×2 (09:40→21:21)
[2022-02-03] MEDS: TAMSULOSIN HCL 0.4 MG CAP PO SCH (09:40)
[2022-02-03] MEDS: PRENATAL VITAMINS W/ FOLIC ACID TABLET (FP) PO SCH (09:40)
[2022-02-03] MEDS: OMEGA-3 ACID ETHYL ESTERS (FATTY-ACIDS) 1 GM CAPSULE (FP) PO SCH (09:40)
[2022-02-03] MEDS: NICOTINE 7 MG/24 HOURS TOPICAL PATCH TD SCH (09:41)
[2022-02-03] MEDS: TETRAHYDROZOLINE HCL EYE DROPS OU SCH (09:41)
[2022-02-03] MEDS: MELATONIN 5 MG TABLETS PO SCH (21:20)
[2022-02-03] MEDS: THIAMINE HCL 100 MG TABLET (FP) PO SCH (21:20)
[2022-02-03] MEDS: ATORVASTATIN CA 10 MG TABLET (FP) PO SCH (21:21)
[2022-02-04] MEDS: INSULIN SLIDING SCALE (NOVOLOG) 1 VIAL SQ SCH ×4 (06:56→21:36)
[2022-02-04] MEDS ORDERED: INSULIN (NOVOLOG) ASPART 100 UNITS/ML 10ML VIAL ONE ×2 (06:57→11:55)
[2022-02-04] MEDS: metFORMIN HCL 500 MG TABLET (FP) PO SCH (06:58)
[2022-02-04] MEDS: HYDROCHLOROTHIAZIDE 12.5 MG CAPSULE (FP) PO SCH (06:58)
[2022-02-04] MEDS: LOSARTAN POTASSIUM 50 MG TABLET PO SCH (06:58)
[2022-02-04] MEDS: GABAPENTIN 400 MG CAPSULE PO SCH ×2 (10:15→21:36)
[2022-02-04] MEDS: TAMSULOSIN HCL 0.4 MG CAP PO SCH (10:15)
[2022-02-04] MEDS: OMEGA-3 ACID ETHYL ESTERS (FATTY-ACIDS) 1 GM CAPSULE (FP) PO SCH (10:15)
[2022-02-04] MEDS: PRENATAL VITAMINS W/ FOLIC ACID TABLET (FP) PO SCH (10:16)
[2022-02-04] MEDS: ASPIRIN COATED 81 MG TABLET.EC PO SCH (10:16)
[2022-02-04] MEDS: NICOTINE 7 MG/24 HOURS TOPICAL PATCH TD SCH (10:16)
[2022-02-04] MEDS: ATORVASTATIN CA 10 MG TABLET (FP) PO SCH (21:36)
[2022-02-04] MEDS: THIAMINE HCL 100 MG TABLET (FP) PO SCH (21:36)
[2022-02-04] MEDS: MELATONIN 5 MG TABLETS PO SCH (21:36)
[2022-02-05] MEDS: HYDROCHLOROTHIAZIDE 12.5 MG CAPSULE (FP) PO SCH (06:55)
[2022-02-05] MEDS: LOSARTAN POTASSIUM 50 MG TABLET PO SCH (06:55)
[2022-02-05] MEDS: metFORMIN HCL 500 MG TABLET (FP) PO SCH (06:55)
[2022-02-05] MEDS: INSULIN SLIDING SCALE (NOVOLOG) 1 VIAL SQ SCH ×4 (07:18→21:21)
[2022-02-05] MEDS: GABAPENTIN 400 MG CAPSULE PO SCH ×2 (10:17→21:23)
[2022-02-05] MEDS: OMEGA-3 ACID ETHYL ESTERS (FATTY-ACIDS) 1 GM CAPSULE (FP) PO SCH (10:17)
[2022-02-05] MEDS: ASPIRIN COATED 81 MG TABLET.EC PO SCH (10:17)
[2022-02-05] MEDS: TAMSULOSIN HCL 0.4 MG CAP PO SCH (10:17)
[2022-02-05] MEDS: PRENATAL VITAMINS W/ FOLIC ACID TABLET (FP) PO SCH (10:18)
[2022-02-05] MEDS: NICOTINE 7 MG/24 HOURS TOPICAL PATCH TD SCH (10:18)
[2022-02-05] MEDS ORDERED: INSULIN (NOVOLOG) ASPART 100 UNITS/ML 10ML VIAL ONE (12:08)
[2022-02-05] MEDS: MELATONIN 5 MG TABLETS PO SCH (21:23)
[2022-02-05] MEDS: ATORVASTATIN CA 10 MG TABLET (FP) PO SCH (21:23)
[2022-02-05] MEDS: THIAMINE HCL 100 MG TABLET (FP) PO SCH (21:23)
[2022-02-06] MEDS: LOSARTAN POTASSIUM 50 MG TABLET PO SCH (07:11)
[2022-02-06] MEDS: HYDROCHLOROTHIAZIDE 12.5 MG CAPSULE (FP) PO SCH (07:12)
[2022-02-06] MEDS: metFORMIN HCL 500 MG TABLET (FP) PO SCH (07:12)
[2022-02-06] MEDS: INSULIN SLIDING SCALE (NOVOLOG) 1 VIAL SQ SCH ×4 (07:22→21:35)
[2022-02-06] MEDS: GABAPENTIN 400 MG CAPSULE PO SCH ×2 (09:29→21:33)
[2022-02-06] MEDS: ASPIRIN COATED 81 MG TABLET.EC PO SCH (09:29)
[2022-02-06] MEDS: TAMSULOSIN HCL 0.4 MG CAP PO SCH (09:29)
[2022-02-06] MEDS: PRENATAL VITAMINS W/ FOLIC ACID TABLET (FP) PO SCH (09:30)
[2022-02-06] MEDS: NICOTINE 7 MG/24 HOURS TOPICAL PATCH TD SCH (09:30)
[2022-02-06] MEDS: OMEGA-3 ACID ETHYL ESTERS (FATTY-ACIDS) 1 GM CAPSULE (FP) PO SCH (09:30)
[2022-02-06] MEDS ORDERED: INSULIN (NOVOLOG) ASPART 100 UNITS/ML 10ML VIAL ONE ×2 (12:13→21:42)
[2022-02-06] MEDS: MELATONIN 5 MG TABLETS PO SCH (21:33)
[2022-02-06] MEDS: ATORVASTATIN CA 10 MG TABLET (FP) PO SCH (21:33)
[2022-02-06] MEDS: THIAMINE HCL 100 MG TABLET (FP) PO SCH (21:33)
[2022-02-07] MEDS: metFORMIN HCL 500 MG TABLET (FP) PO SCH (06:47)
[2022-02-07] MEDS: HYDROCHLOROTHIAZIDE 12.5 MG CAPSULE (FP) PO SCH (06:47)
[2022-02-07] MEDS: LOSARTAN POTASSIUM 50 MG TABLET PO SCH (06:47)
[2022-02-07] MEDS ORDERED: INSULIN (NOVOLOG) ASPART 100 UNITS/ML 10ML VIAL ONE ×4 (07:01→21:41)
[2022-02-07] MEDS: INSULIN SLIDING SCALE (NOVOLOG) 1 VIAL SQ SCH ×4 (07:37→21:37)
[2022-02-07] MEDS: OMEGA-3 ACID ETHYL ESTERS (FATTY-ACIDS) 1 GM CAPSULE (FP) PO SCH (10:09)
[2022-02-07] MEDS: GABAPENTIN 400 MG CAPSULE PO SCH ×2 (10:09→21:36)
[2022-02-07] MEDS: PRENATAL VITAMINS W/ FOLIC ACID TABLET (FP) PO SCH (10:09)
[2022-02-07] MEDS: TAMSULOSIN HCL 0.4 MG CAP PO SCH (10:09)
[2022-02-07] MEDS: ASPIRIN COATED 81 MG TABLET.EC PO SCH (10:09)
[2022-02-07] MEDS: NICOTINE 7 MG/24 HOURS TOPICAL PATCH TD SCH (10:10)
[2022-02-07] MEDS: THIAMINE HCL 100 MG TABLET (FP) PO SCH (21:35)
[2022-02-07] MEDS: MELATONIN 5 MG TABLETS PO SCH (21:35)
[2022-02-07] MEDS: ATORVASTATIN CA 10 MG TABLET (FP) PO SCH (21:36)
[2022-02-08] MEDS: INSULIN SLIDING SCALE (NOVOLOG) 1 VIAL SQ SCH ×4 (07:29→21:31)
[2022-02-08] MEDS: HYDROCHLOROTHIAZIDE 12.5 MG CAPSULE (FP) PO SCH (07:29)
[2022-02-08] MEDS: metFORMIN HCL 500 MG TABLET (FP) PO SCH (07:29)
[2022-02-08] MEDS: LOSARTAN POTASSIUM 50 MG TABLET PO SCH (07:29)
[2022-02-08] MEDS: TAMSULOSIN HCL 0.4 MG CAP PO SCH (09:48)
[2022-02-08] MEDS: OMEGA-3 ACID ETHYL ESTERS (FATTY-ACIDS) 1 GM CAPSULE (FP) PO SCH (09:49)
[2022-02-08] MEDS: PRENATAL VITAMINS W/ FOLIC ACID TABLET (FP) PO SCH (09:49)
[2022-02-08] MEDS: GABAPENTIN 400 MG CAPSULE PO SCH ×2 (09:49→21:29)
[2022-02-08] MEDS: NICOTINE 7 MG/24 HOURS TOPICAL PATCH TD SCH (09:49)
[2022-02-08] MEDS: ASPIRIN COATED 81 MG TABLET.EC PO SCH (09:49)
[2022-02-08] MEDS ORDERED: INSULIN (NOVOLOG) ASPART 100 UNITS/ML 10ML VIAL ONE ×2 (11:51→16:39)
[2022-02-08] MEDS: MELATONIN 5 MG TABLETS PO SCH (21:29)
[2022-02-08] MEDS: THIAMINE HCL 100 MG TABLET (FP) PO SCH (21:29)
[2022-02-08] MEDS: ATORVASTATIN CA 10 MG TABLET (FP) PO SCH (21:29)
[2022-02-09] MEDS: LOSARTAN POTASSIUM 50 MG TABLET PO SCH (06:47)
[2022-02-09] MEDS: INSULIN SLIDING SCALE (NOVOLOG) 1 VIAL SQ SCH ×4 (06:47→21:38)
[2022-02-09] MEDS: metFORMIN HCL 500 MG TABLET (FP) PO SCH (06:47)
[2022-02-09] MEDS: HYDROCHLOROTHIAZIDE 12.5 MG CAPSULE (FP) PO SCH (06:47)
[2022-02-09] MEDS: TAMSULOSIN HCL 0.4 MG CAP PO SCH (10:01)
[2022-02-09] MEDS: PRENATAL VITAMINS W/ FOLIC ACID TABLET (FP) PO SCH (10:01)
[2022-02-09] MEDS: OMEGA-3 ACID ETHYL ESTERS (FATTY-ACIDS) 1 GM CAPSULE (FP) PO SCH (10:01)
[2022-02-09] MEDS: ASPIRIN COATED 81 MG TABLET.EC PO SCH (10:01)
[2022-02-09] MEDS: GABAPENTIN 400 MG CAPSULE PO SCH ×2 (10:01→21:34)
[2022-02-09] MEDS: NICOTINE 7 MG/24 HOURS TOPICAL PATCH TD SCH (10:02)
[2022-02-09] MEDS ORDERED: INSULIN (NOVOLOG) ASPART 100 UNITS/ML 10ML VIAL ONE ×2 (11:52→22:23)
[2022-02-09] MEDS: THIAMINE HCL 100 MG TABLET (FP) PO SCH (21:34)
[2022-02-09] MEDS: ATORVASTATIN CA 10 MG TABLET (FP) PO SCH (21:34)
[2022-02-09] MEDS: MELATONIN 5 MG TABLETS PO SCH (21:34)
[2022-02-10] MEDS: LOSARTAN POTASSIUM 50 MG TABLET PO SCH (06:57)
[2022-02-10] MEDS: HYDROCHLOROTHIAZIDE 12.5 MG CAPSULE (FP) PO SCH (06:57)
[2022-02-10] MEDS: INSULIN SLIDING SCALE (NOVOLOG) 1 VIAL SQ SCH (06:58)
[2022-02-10] MEDS: metFORMIN HCL 500 MG TABLET (FP) PO SCH (06:58)
[2022-02-10 07:46] VITALS: BP 155/77; PULSE 74; TEMP 96
[2022-02-10] MEDS: OMEGA-3 ACID ETHYL ESTERS (FATTY-ACIDS) 1 GM CAPSULE (FP) PO SCH (09:32)
[2022-02-10] MEDS: ASPIRIN COATED 81 MG TABLET.EC PO SCH (09:32)
[2022-02-10] MEDS: TAMSULOSIN HCL 0.4 MG CAP PO SCH (09:32)
[2022-02-10] MEDS: PRENATAL VITAMINS W/ FOLIC ACID TABLET (FP) PO SCH (09:32)
[2022-02-10] MEDS: GABAPENTIN 400 MG CAPSULE PO SCH (09:32)
[2022-02-10] MEDS: NICOTINE 7 MG/24 HOURS TOPICAL PATCH TD SCH (09:33)
== END 2022-02-10 09:36 | disposition home or self-care (01) | DRG 895 ==
LOC: YASAS 13:14 → Y3E 13:16
PROVIDERS: ADMIT Allergy & Immunology; ATTEND Psychiatry & Neurology Pain Medicine
PROC: HZ42ZZZ Group Counseling for Substance Abuse Treatment, Cognitive-Behavioral (ICD-10-PCS; principal; 2022-01-27)
DX: F10.20 Alcohol dependence, uncomplicated (principal); F14.20 Cocaine dependence, uncomplicated; F19.282 Other psychoactive substance dependence with psychoactive substance-induced sleep disorder; I10 Essential (primary) hypertension; E11.9 Type 2 diabetes mellitus without complications; E78.00 Pure hypercholesterolemia, unspecified; N40.1 Benign prostatic hyperplasia with lower urinary tract symptoms; R35.0 Frequency of micturition; E66.9 Obesity, unspecified; Z68.37 Body mass index [BMI] 37.0-37.9, adult; I69.820 Aphasia following other cerebrovascular disease; I69.892 Facial weakness following other cerebrovascular disease
CPT/HCPCS: 82962; J0735